=== PATIENT | female | born 1990 | race Caucasian/White ===

== ENCOUNTER 2016-08-07 16:28 | Emergency (ER) | payer BC ==
[2016-08-07 18:09] VITALS: BP 114/67
--- NOTE | 2016-08-07 18:48 | UC ---
FLU HPI - HPI Summary HPI Summary: 25 year old female with complaints of nausea, vomiting, and diarrhea and low grade fever all night. All symptoms resolved at 8:30 this morning but has been worried that she has the flu and would like testing. Headache, and body aches resolved with 400mg of ibuprofen and fluids - History of Current Complaint Chief Complaint: UCGeneralIllness Stated Complaint: VOMITING,DIARRHEA Time Seen by Provider: 08/07/16 18:06 Hx Obtained From: Patient Hx Last Menstrual Period: 1 week ago ?: No Onset/Duration: Sudden Onset, Lasting Hours - 12 hours, Resolved Severity Currently: None Severity Initially: Moderate Associated Signs & Symptoms: Positive: Fever, Myalgia, Headache, Vomiting, Diarrhea. Negative: T Max, F/C, Cough, Sore Throat, Nasal Congestion Related Hx: Possible Flu/Infectious Exposure - Risk Factors Influenza Risk Factors: Negative - Allergy/Home Medications Allergies/Adverse Reactions: Allergies Allergy/AdvReac Type Severity Reaction Status Date / Time Sulfa Drugs Allergy Severe Hives Verified 03/29/16 16:41 Morphine Allergy GI Upset Verified 03/30/16 02:32 IV dye Allergy Severe Hives Uncoded 03/29/16 16:41 Home Medications: Home Medications Cetirizine HCl [Zyrtec Allergy] 10 mg PO DAILY 08/07/16 [History Confirmed 08/07] Sertraline HCl [Zoloft] 25 mg PO DAILY 08/07/16 [History Confirmed 08/07/16] PMH/Surg Hx/FS Hx/Imm Hx Previously Healthy: Yes Endocrine History Of: Denies: Diabetes Cardiovascular History Of: Denies: Hypertension, Pacemaker/ICD Respiratory History Of: Reports: Asthma, Bronchitis GI/ History Of: Denies: Renal Disease Psychological History Of: Reports: Anxiety - Surgical History Surgical History: Yes Surgery Procedure, Year, and Place: wisdom teeth; scheduled for next week - Family History Known Family History: Negative: Hypertension, Diabetes - Social History Occupation: Employed Full-time Lives: With Family Alcohol Use: None Substance Use Type: None Smoking Status (MU): Never Smoked Tobacco Have You Smoked in the Last Year: No - Immunization History Most Recent Influenza Vaccination: unk Most Recent Tetanus Shot: 01/23/16 Most Recent Pneumonia Vaccination: never Review of Systems Constitutional: Fever, Chills Skin: Negative Eyes: Negative ENT: Negative Respiratory: Negative Cardiovascular: Negative Gastrointestinal: Vomiting, Diarrhea - have all resolved Genitourinary: Negative Motor: Negative Neurovascular: Negative Musculoskeletal: Myalgia - resolved Neurological: Headache - resolved Psychological: Negative All Other Systems Reviewed And Are Negative: Yes Physical Exam Triage Information Reviewed: Yes Appearance: No Pain Distress, Well-Nourished, Ill-Appearing - mildly Vital Signs: Initial Vital Signs Temp 98.8 F 08/07/16 18:02 Pulse 92 08/07/16 18:02 Resp 16 08/07/16 18:02 BP 114/67 08/07/16 18:02 Pulse Ox 99 08/07/16 18:02 Vital Signs Reviewed: Yes Eyes: Positive: Conjunctiva Clear. Negative: Discharge ENT: Positive: Pharynx normal, TMs normal. Negative: Nasal congestion, Nasal drainage, Tonsillar swelling Neck: Positive: Supple, Nontender, No Lymphadenopathy Respiratory: Positive: Chest non-tender, Lungs clear, Normal breath sounds. Negative: Crackles, Wheezing Cardiovascular: Positive: RRR, No Murmur Abdomen Description: Positive: Nontender, No Organomegaly, Soft. Negative: CVA Tenderness (R), CVA Tenderness (L), Distended, Guarding Musculoskeletal: Positive: Strength Intact, ROM Intact Neurological: Positive: Alert, Muscle Tone Normal Psychological: Positive: Age Appropriate Behavior - pleasant and cooperative Skin: Negative: rashes, breakdown Flu Course/Dx - Course Course Of Treatment: Influenza test - invalid result. Education on stomach bug and flu - Differential Dx/Diagnosis Differential Diagnosis/HQI/PQRI: Influenza, Upper Respiratory Infection Provider Diagnoses: Gastroenteritis Discharge - Discharge Plan Condition: Stable Disposition: HOME Patient Education Materials: Gastroenteritis (ED) Forms: *Work Release
== END 2016-08-07 18:59 | disposition home or self-care (01) ==
LOC: UCCORT 16:28
DX: K52.9 Noninfective gastroenteritis and colitis, unspecified (principal); Z88.5 Allergy status to narcotic agent; Z88.2 Allergy status to sulfonamides
CPT/HCPCS: 99201; G0463

== ENCOUNTER 2017-03-19 20:00 | Emergency (ER) | payer BC ==
[2017-03-19 20:14] VITALS: BP 132/88
[2017-03-19] MEDS ORDERED: Azithromycin TAB* 250 MG PO ONE (20:55)
--- NOTE | 2017-03-19 21:14 | UC ---
Respiratory Complaint HPI - HPI Summary HPI Summary: Patient presents with cough, congestion, and SOB x 4 days. She has a hx of bronchitis which is usually improved with albuterol and z-robert per patient. She states "I think I have bronchitis". Since last Friday pt c/o runny nose, cough, and SOB. Denies fever/chills. Also c/o chest tightness for last couple weeks, pain worse when coughing. Taking ibuprofen prn, last dose this morning. - History of Current Complaint Hx Obtained From: Patient Hx Last Menstrual Period: 03/11/17 ?: No Onset/Duration: Sudden Onset Timing: Constant Severity Initially: Moderate Severity Currently: Moderate Pain Intensity: 4 Pain Scale Used: 0-10 Numeric Character: Cough: Nonproductive Aggravating Factors: Deep Breaths, Recumbent Position Alleviating Factors: Upright Position Associated Signs And Symptoms: Positive: URI, Nasal Congestion - Risk Factors Pulmonary Embolism Risk Factors: Negative Cardiac Risk Factors: Negative Pseudomonas Risk Factors: Negative Tuberculosis Risk Factors: Negative <Yasmeen Melvin - Last Filed: 03/19/17 21:10> <Vonnie Chapa - Last Filed: 03/20/17 20:07> - History of Current Complaint Chief Complaint: UCRespiratory Stated Complaint: CHEST CONGESTION, COUGH Time Seen by Provider: 03/19/17 20:45 - Allergies/Home Medications Allergies/Adverse Reactions: Allergies Allergy/AdvReac Type Severity Reaction Status Date / Time Sulfa Drugs Allergy Severe Hives Verified 03/19/17 20:06 Amoxicillin Allergy Anaphylatic Verified 03/19/17 20:06 Shock Morphine Allergy GI Upset Verified 03/19/17 20:06 IV dye Allergy Severe Hives Uncoded 03/19/17 20:06 PMH/Surg Hx/FS Hx/Imm Hx Previously Healthy: Yes - Surgical History Surgical History: Yes Surgery Procedure, Year, and Place: wisdom teeth; . tubal ligation - Family History Known Family History: Negative: Hypertension, Diabetes - Social History Occupation: Employed Full-time Lives: With Family Alcohol Use: Rare Substance Use Type: None Smoking Status (MU): Never Smoked Tobacco Have You Smoked in the Last Year: No - Immunization History Most Recent Influenza Vaccination: NOT YET 2016 Most Recent Tetanus Shot: 01/23/16 Most Recent Pneumonia Vaccination: never <Yasmeen Melvin - Last Filed: 03/19/17 21:10> Review of Systems Constitutional: Negative Eyes: Negative Respiratory: Shortness Of Breath, Cough Cardiovascular: Negative Gastrointestinal: Negative Motor: Negative Neurovascular: Negative Neurological: Negative Psychological: Negative Is Patient Immunocompromised?: No All Other Systems Reviewed And Are Negative: Yes <Yasmeen Melvin - Last Filed: 03/19/17 21:10> Physical Exam Triage Information Reviewed: Yes Appearance: Well-Appearing, Well-Nourished Vital Signs: Initial Vital Signs Temp 97.8 F 03/19/17 20:07 Pulse 79 03/19/17 20:07 Resp 16 03/19/17 20:07 BP 132/88 03/19/17 20:07 Pulse Ox 99 03/19/17 20:07 Vital Signs Reviewed: Yes Eye Exam: Normal Eyes: Positive: Conjunctiva Clear Neck exam: Normal Neck: Positive: Supple, No Lymphadenopathy Respiratory Exam: Normal Respiratory: Positive: Chest non-tender, Lungs clear Cardiovascular Exam: Normal Cardiovascular: Positive: RRR Musculoskeletal Exam: Normal Musculoskeletal: Positive: Strength Intact Neurological Exam: Normal Neurological: Positive: Alert Psychological: Positive: Normal Response To Family, Age Appropriate Behavior Skin Exam: Normal <Yasmeen Melvin - Last Filed: 03/19/17 21:10> Vital Signs: Initial Vital Signs Temp 97.8 F 03/19/17 20:07 Pulse 79 03/19/17 20:07 Resp 16 03/19/17 20:07 BP 132/88 03/19/17 20:07 Pulse Ox 99 03/19/17 20:07 <Vonnie Chapa - Last Filed: 03/20/17 20:07> Diagnostic Evaluation - Laboratory O2 Sat by Pulse Oximetry: 99 <NgoziYasmeen - Last Filed: 03/19/17 21:10> Respiratory Course/Dx - Course Course Of Treatment: Patient here with cough and congestion. She states she thinks she has bronchitis as she has a history of such. Denies other problems including fevers, sweats and chills. Denies other symptoms. She is given a z- robert and albuterol. She is OK with plan and discharge. Return precautions given. - Differential Dx/Diagnosis Differential Diagnosis/HQI/PQRI: Bronchitis, Lower Resp Infection, Sinusitis Provider Diagnoses: Acute Bronchitis <Yasmeen Melvin - Last Filed: 03/19/17 21:10> Discharge <Yasmeen Melvin - Last Filed: 03/19/17 21:10> <Vonnie Chapa - Last Filed: 03/20/17 20:07> - Discharge Plan Condition: Stable Disposition: HOME Prescriptions: Albuterol HFA INHALER* [Ventolin HFA Inhaler*] 1 puff INH Q4H PRN #1 mdi PRN Reason: Cough Azithromycin TAB* [Zithromax TAB (Z-ROBERT) 250 mg #6 tabs] 250 mg PO DAILY #4 tab Patient Education Materials: Acute Bronchitis (ED) Referrals: Jordan Terrell PROGRAM DIRECTOR/MUSIC DIRECTOR [Primary Care Provider] - Additional Instructions: Humidifier in the home will help. Tylenol for discomfort. Take all medications as directed. Symptoms should resolve in 1-3 weeks. If symptoms become worse, please come back to UC or go to the ED. Honey and lemon hot tea Rest plenty of fluids. Attestation Statement User Type: Provider - I was available for consult. This patient was seen by the [facility]. The patient was not presented to, seen by, or examined by me. -[place] <Vonnie Chapa - Last Filed: 03/20/17 20:07>
== END 2017-03-19 21:03 | disposition home or self-care (01) ==
LOC: UCCORT 20:00
DX: J20.9 Acute bronchitis, unspecified (principal); Z88.2 Allergy status to sulfonamides; Z88.0 Allergy status to penicillin; Z88.5 Allergy status to narcotic agent
CPT/HCPCS: 99212; A9270-GY; G0463

== ENCOUNTER 2017-08-12 13:14 | Emergency (ER) | payer BC ==
--- OUTSIDE RECORDS SUMMARY | 2017-08-12 14:11 | XMS REPORT ---
:1990 External Reference #:[id number] Author Organization [facility] Address [address] [address] Phone [phone] Care Team Providers Name Role Phone Yunior Dove MD Care Team Information Installation And Service Technician Unavailable Lesa Rodriguez MD Primary Care Physician Unavailable Payers Type Date Identification Numbers Payment Provider Subscriber Commercial Effective: Policy Number: BS Facets Bakari Lu 2013 [id number] PayID: [id number] [address] [address] [place] [address] Problems Date Description Provider Status Onset: 04/17/2012 Arthralgia of the lower leg Bette Ordaz M.D. Active Onset: 04/17/2012 Allergy Bette Ordaz M.D. 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 , lives with and 2 dogs No formal exercise 1-2 cups of coffe per day No tobacco Sexually active with condoms for control 1-2 drinks/month Allergies, Adverse Reactions, Alerts Date Description Reaction Status Severity Comments 04/08/2012 Sulfa vomiting, rash, active Moderate to difficulty Severe breathing 12/30/2012 Vicodin upset stomach active 12/30/2012 Codeine upset stomach active 04/13/2013 IV Contrast hives active 09/22/2015 Bee Sting Anaphylaxis active Severe 09/22/2015 Oxycodone active vomitting and hallucinations 08/28/2016 Augmentin Anaphylaxis active Severe 05/14/2017 Amoxicillin hives, SOB active Medications Medication Date Status Form Strength Qnty SIG Indications Ordering Provider Sumatriptan 07/15 Active Tablets 100mg 12tab 1 tab by G43.709 Amanda Succinate s mouth as Cowdery, needed for M.D. migraine, may repeat after 2 hours; maximum 2 tablets in 24 hours, maximum 2 days a week. Epipen 2-Uri 02/15 Active Solution 0.3mg/0.3 1unit use as Jordan Auto-Inject ML s directed(eliot Terrell, AVIATION MANAGER rgic to bees) Zyrtec 01/20 Active Capsules 10mg 90cap 1 by mouth 995.3 Lesa Allergy s every day Magalis Rodriguez Sertraline Active Tablets 25mg 1 by mouth Unknown HCL /0000 every day Azithromycin 08/28 Hx Tablets 250mg 6tabs 2 tabs by J01.90 Jordan mouth every Xander, AVIATION MANAGER - day x1 day, 1 09/01 tab by mouth /2016 every day x 4 days Amoxicillin/C 08/23 Hx Tablets 875-125mg 20tab take one J01.90 Jordan lavulanate s tablet q12 Xander, AVIATION MANAGER Potassium - hours for 10 Plus 07/11 Hx Tablets 27-1mg 30tab take one Verito /2016 s tablet by Varn, N.P. - mouth one 08/23 time daily Medrol (Uri) 05/29 Hx Tablets 4mg 21tab take 6 tabs M89.8x8 Jordan /2014 s day 1, 5 tabs Xander, AVIATION MANAGER - day 2, 4 tabs 08/21 day 3, 3 tabs /2015 day 4, 2 tabs day 5, and 1 tab day 6. Amoxicillin 04/10 Hx Suspension 250mg/5ML 200ml 10ml PO bid J02.9 Jordan /2014 Rec for 10 days Xander, AVIATION MANAGER - 04/20 Lidocaine 04/10 Hx Solution 2% 100ml gargle with J02.9 Jordan Viscous 15ml every 4 Xander, AVIATION MANAGER - hours as 04/15 needed for throat pain. Terazol 7 02/10 Hx Cream 0.4% 45gm Apply 616.10 intravaginall Cotton, - y QHS x 7 M.D. Metrogel-Vagi 02/01 Hx Gel 0.75% 70gm apply 616.10 intravaginall Pachikara, - y every night M.D. 02/10 at bedtime 5 days Diflucan 02/01 Hx Tablets 150mg 1tabs 1 tab 1 dose 616.10 Pachikara, - M.D. 04/10 Vitamin D 10/26 Hx Capsules [id number] 12cap take one Jordan (Ergocalcifer /2014 s capsule once HOLA Terrell ol) - weekly for 12 08/21 weeks. Ferrous 10/26 Hx Tablets 325(65Fe) 30tab take 1 tablet Jordan Sulfate /2014 mg s once daily. HOLA Terrell - 08/21 Escitalopram 06/06 Hx Tablets 10mg 90tab take one Jordan Oxalate s tablet by HOLA Terrell - mouth once 05/29 daily. TGT ALL Day 10/15 Hx Tablets 10mg 30tab Take One 995.3 Bette s Tablet By Leslie Ordaz - Mouth One M.D. 01/20 Time Lovenox 10/04 Hx Solution 40mg/0.4M 14uni sc every day Nohemy L Jennifer Romo M.D., [facility] 06/02 Nasonex 10/04 Hx Suspension 50mcg/Act 1unit 2 sprays to 461.0 Nohemy s each nostril Mckenna, - once daily M.D., FACP 01/20 Amoxicillin 10/04 Hx Capsules 250mg 30cap three times a 461.0 Nohemy /2013 s day by mouth Mckenna, - for 10 days M.D., FACP 10/20 Cleocin-T 07/14 Hx Gel 1% 30gm apply 1 706.1 application Orlin, - topically to M.D. 07/28 affected area 2 times per day for acne as needed 04/13 Hx Tablets 27-1mg 90tab take 1 tablet Jordan /2012 s daily Xander AVIATION MANAGER - 12/21 Proventil HFA 02/09 Hx Aerosol 108(90Bas 1unit 2 puffs qid e) s prn Varn, N.P. - mcg/Act 08/23 Prednisone 02/09 Hx Tablets 10mg 40tab 4 tablets po 493.90 Verito /2013 s for 4 days 3 Varn, N.P. - tablets po 02/25 for 4 days tablets po for 4 days 1 tablet po for 4 days Pulmicort 02/09 Hx Aerosol 180mcg/Ac 1unit 2 puffs twice 493.90 Verito t s daily Varn, N.P. - 03/11 Zithromax 02/09 Hx Tablets 250mg 1Pack as per directions Varn, N.P. - 02/16 Clindamycin/B 07/20 Hx Gel 1.2-5% 45gm apply 1 706.1 Bette enz application Roland Ordaz - topically to M.D. 03/12 affected area /2012 daily after washing inthe evening for acne Proventil HFA Hx Aerosol 108(90Bas 1unit 2 puffs qid Unknown /0000 e) mcg/ac s prn - 02/09 Advil 00 Hx Capsules 600mg 100ca prn Unknown /0000 ps - 10/04 Benadryl 00 Hx Capsules 50mg 60cap 2- 4 tabs for Unknown Allergy /0000 s allergies prn - 01/20 Zyrtec 00 Hx Capsules 10mg 30cap 1 po qd 995.3 Lesa Allergy /0000 s Cotton, - M.D. 10/15 Pulmicort 00 Hx Aerosol 180mcg/Ac 3unit 2 puffs twice Unknown Flexhaler /0000 t s daily - 06/02 Tylenol 00/ Hx Tablets 325mg prn Unknown /0000 - 07/27 Lovenox Hx Solution 40mg/0.4M 1 injection Unknown /0000 L subcutaneous - every 24 Immunizations CPT Code Status Date Vaccine Lot # [id number] Given 06/12/2014 Fluzone Vaccine Vital Signs Date Vital Result Comment 07/15/2017 Height 61 inches 5'1" Weight 158.00 lb Heart Rate 91 /min BP Systolic Sitting 112 mmHg BP Diastolic Sitting 68 mmHg Respiratory Rate 16 /min Pain Level 0 O2 % BldC Oximetry 98 % Ra BMI (Body Mass Index) 29.9 kg/m2 05/14/2017 Weight 156.38 lb Heart Rate 69 /min BP Systolic Sitting 130 mmHg BP Diastolic Sitting 82 mmHg Body Temperature 98.0 F O2 % BldC Oximetry 98 % 12/10/2016 Height 61 inches 5'1" Weight 160.00 lb Heart Rate 66 /min BP Systolic Sitting 116 mmHg BP Diastolic Sitting 60 mmHg Respiratory Rate 16 /min O2 % BldC Oximetry 98 % BMI (Body Mass Index) 30.2 kg/m2 08/28/2016 Height 61 inches 5'1" Weight 169.00 lb Heart Rate 74 /min BP Systolic 110 mmHg BP Diastolic 70 mmHg Body Temperature 97.0 F O2 % BldC Oximetry 98 % BMI (Body Mass Index) 31.9 kg/m2 08/23/2016 Height 61 inches 5'1" Weight 170.00 lb Heart Rate 80 /min BP Systolic 110 mmHg BP Diastolic 70 mmHg Body Temperature 98.7 F O2 % BldC Oximetry 98 % BMI (Body Mass Index) 32.1 kg/m2 02/05/2016 Height 61 inches 5'1" Weight 187.00 lb Heart Rate 72 /min BP Systolic Sitting 120 mmHg BP Diastolic Sitting 78 mmHg Respiratory Rate 14 /min BMI (Body Mass Index) 35.3 kg/m2 09/22/2015 Height 61 inches 5'1" Weight 162.00 lb Heart Rate 80 /min BP Systolic Sitting 116 mmHg BP Diastolic Sitting 62 mmHg Respiratory Rate 16 /min BMI (Body Mass Index) 30.6 kg/m2 05/29/2015 Height 61 inches 5'1" Weight 162.00 lb Heart Rate 68 /min BP Systolic Sitting 128 mmHg BP Diastolic Sitting 64 mmHg Body Temperature 98.0 F Pain Level 6 L chest pain O2 % BldC Oximetry 99 % BMI (Body Mass Index) 30.6 kg/m2 04/10/2015 Height 61 inches 5'1" Weight 167.00 lb Heart Rate 77 /min BP Systolic Sitting 112 mmHg BP Diastolic Sitting 64 mmHg Respiratory Rate 14 /min Body Temperature 97.1 F Pain Level 8 O2 % BldC Oximetry 98 % BMI (Body Mass Index) 31.6 kg/m2 02/01/2015 Height 61 inches 5'1" Weight 172.00 lb Heart Rate 78 /min BP Systolic Sitting 118 mmHg BP Diastolic Sitting 78 mmHg Body Temperature 97.8 F O2 % BldC Oximetry 98 % BMI (Body Mass Index) 32.5 kg/m2 01/02/2015 Weight 169.25 lb Heart Rate 66 /min BP Systolic Sitting 121 mmHg BP Diastolic Sitting 82 mmHg 10/25/2014 Weight 169.00 lb Heart Rate 67 /min BP Systolic Sitting 136 mmHg BP Diastolic Sitting 90 mmHg Body Temperature 97.4 F 09/16/2014 Weight 171.00 lb Heart Rate 90 /min BP Systolic Sitting 122 mmHg BP Diastolic Sitting 80 mmHg Body Temperature 98.7 F O2 % BldC Oximetry 96 % 07/27/2014 Weight 173.00 lb Heart Rate 71 /min BP Systolic Sitting 129 mmHg BP Diastolic Sitting 86 mmHg Body Temperature 97.0 F O2 % BldC Oximetry 99 % 06/17/2014 Height 61 inches 5'1" Weight 171.50 lb Heart Rate 71 /min BP Systolic Sitting 106 mmHg BP Diastolic Sitting 64 mmHg Body Temperature 98.4 F O2 % BldC Oximetry 99 % BMI (Body Mass Index) 32.4 kg/m2 06/03/2014 Height 61 inches 5'1" Weight 177.25 lb Heart Rate 44 /min BP Systolic Sitting 102 mmHg BP Diastolic Sitting 76 mmHg Body Temperature 97.7 F O2 % BldC Oximetry 97 % BMI (Body Mass Index) 33.5 kg/m2 01/20/2014 Weight 168.00 lb Heart Rate 66 /min BP Systolic Sitting 140 mmHg Recheck 120/78 BP Diastolic Sitting 72 mmHg Recheck 120/78 Body Temperature 97.6 F 10/04/2013 Weight 154.50 lb Heart Rate 76 /min BP Systolic 126 mmHg BP Diastolic 84 mmHg Respiratory Rate 16 /min Body Temperature 98.6 F 07/28/2013 Weight 156.50 lb Heart Rate 78 /min BP Systolic Sitting 118 mmHg BP Diastolic Sitting 68 mmHg Body Temperature 99.1 F 07/14/2013 Weight 158.75 lb Heart Rate 80 /min BP Systolic 122 mmHg BP Diastolic 68 mmHg 04/13/2013 Weight 156.50 lb Heart Rate 64 /min BP Systolic 120 mmHg BP Diastolic 62 mmHg 03/12/2013 Weight 155.75 lb Heart Rate 68 /min BP Systolic Sitting 110 mmHg BP Diastolic Sitting 68 mmHg 02/16/2013 Weight 153.25 lb Heart Rate 62 /min BP Systolic Sitting 100 mmHg BP Diastolic Sitting 70 mmHg O2 % BldC Oximetry 98 % 02/09/2013 Weight 153.00 lb Heart Rate 62 /min BP Systolic Sitting 118 mmHg BP Diastolic Sitting 64 mmHg Body Temperature 97.8 F 01/20/2013 Weight 155.25 lb Heart Rate 60 /min BP Systolic Sitting 98 mmHg BP Diastolic Sitting 62 mmHg 12/30/2012 Weight 157.00 lb Heart Rate 60 /min BP Systolic 118 mmHg BP Diastolic 74 mmHg Body Temperature 99.5 F 07/20/2012 Height 60.5 inches 5'0.50" Weight 157.00 lb Heart Rate 66 /min BP Systolic Sitting 122 mmHg BP Diastolic Sitting 74 mmHg BMI (Body Mass Index) 30.2 kg/m2 04/17/2012 Height 60.5 inches 5'0.50" Weight 162.00 lb Heart Rate 70 /min BP Systolic Sitting 116 mmHg BP Diastolic Sitting 70 mmHg BMI (Body Mass Index) 31.1 kg/m2 04/08/2012 Height 60.5 inches 5'0.50" Weight 156.00 lb Heart Rate 68 /min BP Systolic Sitting 124 mmHg BP Diastolic Sitting 78 mmHg BMI (Body Mass Index) 30.0 kg/m2 Results Test Date Test Result H/L Range Note Laboratory test 05/24/2016 D Dimer Quantitative < 200 ng/mL Less Than 230 1 finding CBC No Diff 03/04/2016 White Blood Count 9.4 10^3/uL 3.5-10.8 Red Blood Count 4.67 10^6/uL 4.0-5.4 Hemoglobin 13.9 g/dL 12.0-16.0 Hematocrit 40 % 35-47 Mean Corpuscular Volume 86 fL 80-97 Mean Corpuscular Hemoglobin 30 pg 27-31 Mean Corpuscular HGB Conc 35 g/dL 31-36 Red Cell Distribution Width 13 % 10.5-15 Platelet Count 296 10^3/uL 150-450 Mean Platelet Volume 8 um3 7.4-10.4 Iron & Iron Binding Capacity 03/04/2016 Iron 103 g/dL 50-212 Unsaturated Iron Binding 432 g/dL Total Iron Binding Capacity 535 g/dL High 250-450 % Iron Saturation 19 % 15-55 Urinalysis Profile 02/29/2016 Urine Color Yellow Urine Appearance Clear Urine Specific R[place]on 1.004 Low 1.010-1.030 Urine pH 7.0 5-9 Urine Urobilinogen Negative Negative Urine Ketones Negative Negative Urine Protein Negative Negative Urine Leukocytes Trace Negative Urine Blood 3+ Negative Urine Nitrite Negative Negative Urine Bilirubin Negative Negative Urine Glucose Negative Negative Urine White Blood Cell Trace(0-5/hpf) Absent Urine Red Blood Cell 3+(>10/hpf) Absent Urine Bacteria 1+ Absent Urine Squamous Epithelial Cell Present Absent Urine Culture And 02/29/2016 Urine Culture SEE RESULT BELOW 2 Sensitivities CBC Auto Diff 04/11/2015 White Blood Count 5.4 10^3/uL 4.8-10.8 Red Blood Count 4.49 10^6/uL 4.0-5.4 Hemoglobin 13.3 g/dL 12.0-16.0 Hematocrit 39 % 35-47 Mean Corpuscular Volume 87 fL 80-97 Mean Corpuscular Hemoglobin 30 pg 27-31 Mean Corpuscular HGB Conc 34 g/dL 31-36 Red Cell Distribution Width 12 % 10.5-15 Platelet Count 319 10^3/uL 150-450 Mean Platelet Volume 8 um3 7.4-10.4 Abs Neutrophils 2.4 10^3/uL 1.5-7.7 Abs Lymphocytes 2.3 10^3/uL 1.0-4.8 Abs Monocytes 0.5 10^3/uL 0-0.8 Abs Eosinophils 0.1 10^3/uL 0-0.6 Abs Basophils 0 10^3/uL 0-0.2 Abs Nucleated RBC 0 10^3/uL Granulocyte % 45.4 % 38-83 Lymphocyte % 42.1 % 25-47 Monocyte % 10.1 % High 1-9 Eosinophil % 1.5 % 0-6 Basophil % 0.9 % 0-2 Nucleated Red Blood Cells % 0.1 Laboratory test finding 04/11/2015 Vitamin D Total 25(Oh) 38.5 ng/mL 30- 50 Lyme Disease Serology Negative Negative 3 Laboratory test 04/10/2015 Culture Throat SEE RESULT BELOW 4 finding Laboratory test 04/10/2015 Rapid Group A Strep negative finding GC/Chlamydia 02/01/2015 Chlamydia trachomatis Negative Negative Amplified Rna Rna Neisseria gonorrhoeae (GC) Rna Negative Negative 5 Laboratory test finding 02/01/2015 Culture Genital & SEE RESULT BELOW 6 Sensitivity Ua Routine 02/01/2015 Ua Specific Ripon 1.010 Ua PH 5.0 Ua Color yellow Ua Appera clear Ua WBC trace Ua Protein neg Ua Glucose neg Ua Ketones neg Ua Bilirubin small Ua Urobilinogen norn Ua Nitrite neg Ua Occult Blood neg Laboratory test finding 01/25/2015 Ferritin 49.2 ng/mL 11-307 Vitamin D Total 25(Oh) 42.4 ng/mL 30-50 Laboratory test finding 10/26/2014 C Reactive Protein 1.26 mg/L < 5.00 7 Erythrocyte Sed Rate 12 mm/Hr 0-14 Ferritin 41.0 ng/mL 11-307 Comp Metabolic Panel 10/26/2014 Sodium 137 mmol/L 133-145 Potassium 4.0 mmol/L 3.5-5.0 Chloride 103 mmol/L 101-111 Co2 Carbon Dioxide 29 mmol/L 22-32 Anion Gap 5 mmol/L 2-11 Glucose 74 mg/dL 70-100 Blood Urea Nitrogen 11 mg/dL 6-24 Creatinine 0.72 mg/dL 0.51-0.95 BUN/Creatinine Ratio 15.3 8-20 Calcium 9.7 mg/dL 8.6-10.3 Total Protein 7.3 g/dL 6.4-8.9 Albumin 4.6 g/dL 3.2-5.2 Globulin 2.7 g/dL 2-4 Albumin/Globulin Ratio 1.7 1-3 Total Bilirubin 0.50 mg/dL 0.2-1.0 Alkaline Phosphatase 67 U/L 34-104 Alt 29 U/L 7-52 Ast 19 U/L 13-39 Egfr Non- 97.9 >60 Egfr 125.9 >60 8 Laboratory test finding 10/26/2014 Vitamin D Total 25(Oh) 20.4 ng/mL Low 30-50 Rheumatoid Factor <15 IU/mL <15 9 Marlene (Anti-Nuclear AB) Screen Negative Negative Cyclic Citrullinated Pept IgG <15.6 U 10 Laboratory test finding 10/25/2014 Test Urine negative Laboratory test finding 07/27/2014 Rapid Influenza A B Antigen (SEE NOTE) 11 Type & Screen 03/23/2014 Patient Blood Type B Positive Antibody Screen NEGATIVE CBC Auto Diff 03/23/2014 White Blood Count 8.5 10^3/uL 4.8-10.8 Red Blood Count 4.56 10^6/uL 4.0-5.4 Hemoglobin 14.1 g/dL 12.0-16.0 Hematocrit 40 % 35-47 Mean Corpuscular Volume 88 fL 80-97 Mean Corpuscular Hemoglobin 31 pg 27-31 Mean Corpuscular HGB Conc 35 g/dL 31-36 Red Cell Distribution Width 13 % 10.5-15 Platelet Count 275 10^3/uL 150-450 Mean Platelet Volume 9 um3 7.4-10.4 Abs Neutrophils 5.4 10^3/uL 1.5-7.7 Abs Lymphocytes 2.4 10^3/uL 1.0-4.8 Abs Monocytes 0.6 10^3/uL 0-0.8 Abs Eosinophils 0.1 10^3/uL 0-0.6 Abs Basophils 0.1 10^3/uL 0-0.2 Abs Nucleated RBC 0.01 10^3/uL Granulocyte % 63.6 % 38-83 Lymphocyte % 28.0 % 25-47 Monocyte % 6.8 % 1-9 Eosinophil % 0.7 % 0-6 Basophil % 0.9 % 0-2 Nucleated Red Blood Cells % 0.1 Throat-Beta Strept 10/02/2013 Throat Beta Strep (SEE NOTE) 12 Culture Laboratory test finding 05/17/2013 Anti Thrombin III 100 % 80 - 130 13 Activity Lupus Anticoagulant AB 05/17/2013 Prothrombin Time(Lac) 10.2 sec 14 Lac Inr 0.9 Lac Aptt 31 sec 26 - 36 Lac DRVVT Screen Ratio 1.0 ratio 0.0 - 1.1 Lupus Anticoagulant Interpreta See Comment 15 Factor 5 Leiden Mutation 05/17/2013 Factor V Leiden Mutation Negative Negative Factor V Leiden Interpretation See Comment 16 Factor V Leiden Reviewed By See Comment 17 Cardiolipin Igg,Igm,Iga AB 05/17/2013 Cardiolipin IgG <4.0 GPL 18 Cardiolipin IgM <4.0 MPL 19 Cardiolipin IgA <4.0 APL 20 Laboratory test finding 05/17/2013 Protein C Activity 125 % 70 - 150 21 Protein C Antigen 99 % 70-150 22 Protein S Activity 79 % 50 - 160 23 Protein S Antigen 76 % 50 - 160 24 Factor II (Prothrombin) 05/17/2013 Prothrombin 71120 Negative Negative Genoty Mutation Prothrombin [id number] Interp See Comment 25 Prothrombin Mutation Review By See Comment 26 Laboratory test finding 03/24/2013 Beta HCG Quantitative < 2.1 MIU/ML 0.0-5.0 27 Urine Culture And 03/14/2013 Urine Culture (SEE NOTE) 28 Sensitivities Urine Microscopic 03/14/2013 Urine WBC None Seen None Seen Urine RBC 2+ (>3-10 /hpf) None Seen Urine Epithelial Cells 2+ Squamous /hpf None Seen Bacteria Urine 2+ None Seen Urinalysis 03/14/2013 Urine Color Yellow Urine Appearance Clear Urine Specific Ripon 1.022 1.010-1.030 Urine Esterase Negative Negative Urine Nitrate Negative Negative Urine Urobilinogen Negative E.U./dL Negative Urine Protein Negative mg/dL Negative Urine pH 6.5 5-9 Urine Blood 1+ Negative Urine Ketones Negative mg/dL Negative Urine Bilirubin Negative Negative Urine Glucose Negative mg/dL Negative Laboratory test finding 03/14/2013 Beta HCG Quantitative 53.0 MIU/ML High 0.0-5.0 29 Comp Metabolic Panel 03/14/2013 Sodium 135 mmol/L 133-145 Potassium 3.6 mmol/L 3.5-5.0 Chloride 104 mmol/L 101-111 Co2 Carbon Dioxide 26.0 mmol/L 22-32 Anion Gap 5.0 mmol/L 2-11 Glucose 85 mg/dL 70-100 Blood Urea Nitrogen 11 mg/dL 6-24 Creatinine 0.60 mg/dL 0.50-1.40 BUN/Creatinine Ratio 18.3 8-20 Calcium 9.1 mg/dL 8.1-9.9 Total Protein 7.0 g/dL 6.2-8.1 Albumin 4.1 g/dL 3.6-5.4 Globulin 2.9 g/dL 2-4 Albumin/Globulin Ratio 1.4 1-3 Total Bilirubin 0.7 mg/dL 0.4-1.5 Alkaline Phosphatase 57 U/L 30-110 Alt 19 U/L 14-54 Ast 25 U/L 12-42 Egfr Non- 122.8 >60 Egfr 158.0 >60 30 Abo/RH Type 03/14/2013 Patient Blood Type B Positive Laboratory test finding 03/14/2013 Activated Partial 31.9 seconds 22.18- 37.18 31 Thrombo Time Inr/Protime 03/14/2013 Inr 0.93 0.87-0.97 Affirm Vaginal Dna 03/14/2013 Affirm Vaginal Dna (SEE NOTE) 32 Probe Probe GC/Chlamydia Amplified 03/14/2013 GC/Chlamydia Rna (SEE NOTE) 33 Rna CBC Auto Diff 03/14/2013 White Blood Count 7.6 10^3/uL 4.8-10.8 Red Blood Count 4.61 10^6/uL 4.0-5.4 Hemoglobin 14.2 g/dL 12.0-16.0 Hematocrit 40 % 35-47 Mean Corpuscular Volume 87 fL 80-97 Mean Corpuscular Hemoglobin 31 pg 27-31 Mean Corpuscular HGB Conc 36 g/dL 31-36 Red Cell Distribution Width 13 % 10.5-15 Platelet Count 357 10^3/uL 150-450 Mean Platelet Volume 7 um3 Low 7.4-10.4 Abs Neutrophils 5.2 10^3/uL 1.5-7.7 Abs Lymphocytes 1.6 10^3/uL 1.0-4.8 Abs Monocytes 0.6 10^3/uL 0-0.8 Abs Eosinophils 0.1 10^3/uL 0-0.6 Abs Basophils 0 10^3/uL 0-0.2 Abs Nucleated RBC 0 10^3/uL Granulocyte % 68.9 % 38-83 Lymphocyte % 20.8 % Low 25-47 Monocyte % 8.4 % 1-9 Eosinophil % 1.3 % 0-6 Basophil % 0.6 % 0-2 Nucleated Red Blood Cells % 0 Laboratory test finding 03/12/2013 Beta HCG Quantitative 40.0 MIU/ML High 0.0-5.0 34 Laboratory test finding 02/16/2013 Rheumatoid Factor <15 IU/mL <15 35 Marlene (Anti-Nuclear AB) Screen Negative Negative 36 Cyclic Citrullinated Pept IgG <15.6 U 37 Vitamin D 1,25 And 02/16/2013 Vitamin D 1,25-Dihydroxy 86 pg/mL 18-78 38 Vitamin D,2 Vitamin D, 25 Hydroxy 02/16/2013 25-Hydroxy Vitamin D2 <4.0 ng/mL 25-Hydroxy Vitamin D3 37 ng/mL 25-Hydroxy Vitamin D Total 37 ng/mL 39 Laboratory test finding 02/09/2013 Lyme Disease Serology Negative Negative 40 Erythrocyte Sed Rate 38 mm/Hr High 0-14 C Reactive Protein 0.7 mg/dL High Less than 0.5 Ua Routine 12/30/2012 Ua Specific Ripon 1.005 Ua PH 7.5 Ua Color yellow Ua Appera clear Ua WBC trace Ua Protein trace Ua Glucose neg Ua Ketones neg Ua Bilirubin neg Ua Urobilinogen neg Ua Nitrite neg Ua Occult Blood neg Laboratory test finding 12/30/2012 Test Urine neg Laboratory test finding 12/30/2012 TSH (Thyroid Stimulating 1.07 miu/mL 0.34-5.60 Horm) Laboratory test finding 04/08/2012 Creatine Kinase 162 U/L 0-200 C Reactive Protein 0.6 mg/dL High Less Than 0.5 Laboratory test 04/08/2012 D Dimer Quantitative < 200 NG/ML Less Than 230 41 finding 1 Please note: The following may produce a false positive D Dimer test: - Rheumatoid factor greater than 60 IU/ml - Plasma hemoglobin greater than 0.05 gm/dl - Bilirubin greater than 50 mg/dl - Lipids greater than 1000 mg/dl - FDP greater than 20 ug/ml 2 SEE RESULT BELOW Name: ALYBAKARI : [address]: Jasson Mar MD Acct: [id number] Unit: [id number] AGE: 25 Location: [facility] Re02/29/16 SEX: F Status: REG REF SPEC: [id number] EMILY: 02/29/16-11[address] [facility] [address]: Jasson Mar MD REQ: [id number] RECD: 09/08/16-1256 STATUS: COMP OTHR DR: Lesa Rodriguez MD _ SOURCE: URINE [facility]: ORDERED: Urine Culture Procedure Result Reported Site Urine Culture Final 03/01/16- 1207 ML No Growth (<1,000 CFU/mL) * ML - MAIN LAB ([facility]) . END OF REPORT * ML=Testing performed at Main Lab DEPARTMENT OF PATHOLOGY, [address] [place] [address] Sukhdev Young M.D. Director [facility] # [id number] 3 Serologic response to B. burgdorferi infection is not detected, but cannot rule out early infection during which low or undetectable antibody levels to B. burgdorferi may be present. If clinically indicated, a new serum specimen should be submitted in 7-14 days. Test Performed by: [place] [address] A Operator: Gordon Grewal II, M.D., Ph.D. 4 SEE RESULT BELOW Name: BAKARI LU : [address]: Jordan Terrell NP Acct: [id number] Unit: [id number] AGE: 24 Location: [facility] Re04/10/15 SEX: F Status: REG REF SPEC: [id number] EMILY: 04/10/[address]: Jordan Terrell NP REQ: [id number] RECD: 04/10/15 STATUS: COMP _ SOURCE: THROAT SPDESC: ORDERED: Throat Culture Procedure Result Verified Site Throat Culture Final 04/12/15- 0825 ML Organism 1 NORMAL YENY Quantity 3+ Throat cultures are clinically indicated to detect the presence of group A strep, arcanobacterium and yeast. In certain cases, predominating organisms will be reported. * ML - MAIN LAB ([facility]) . END OF REPORT * ML=Testing performed at Main Lab DEPARTMENT OF PATHOLOGY, [address] [place] [address] Sukhdev Young M.D. Director [facility] # [id number] 5 Female urine specimens have been self-validated by [facility] and have been granted conditional assay approval by [facility]. 6 SEE RESULT BELOW Name: BAKARI LU : [address]: Fuad Bernal MD Acct: [id number] Unit: [id number] AGE: 24 Location: [facility] Re02/01/15 SEX: F Status: REG REF SPEC: [id number] EMILY: 02/01/15-[address] [facility] [address]: Fuad Bernal MD REQ: [id number] RECD: 02/01/15 STATUS: COMP _ SOURCE: CERVIX SPDESC: ORDERED: Genital Culture Procedure Result Verified Site Genital Culture Final 02/03/15- 02 ML Organism 1 NORMAL YENY Quantity 2+ * ML - MAIN LAB ([facility]) . END OF REPORT * ML=Testing performed at Main Lab DEPARTMENT OF PATHOLOGY, [address] [place] [address] Sukhdev Young M.D. Director [facility] # [id number] 7 Acute inflammation: >10.00 8 Because ethnic data is not always readily available, this report includes an eGFR for both -Americans and non- Americans. The National Kidney Disease Education Program (NKDEP) does not endorse the use of the MDRD equation for patients that are not between the ages of 18 and 70, are , have extremes of body size, muscle mass, or nutritional status, or are non- or non-. According to the National Kidney Foundation, irrespective of diagnosis, the stage of the disease is based on the level of kidney function: Stage Description GFR(mL/min/1.73 m(2)) 1 Kidney damage with normal or decreased GFR 90 2 Kidney damage with mild decrease in GFR 60-89 3 Moderate decrease in GFR 30-59 4 Severe decrease in GFR 15-29 5 Kidney failure <15 (or dialysis) 9 Test Performed by: [place] [address] A Operator: Gordon Grewal II, M.D., Ph.D. 10 REFERENCE VALUE <20.0 (Negative) Test Performed by: [place] [address] A Operator: Gordon Grewal II, M.D., Ph.D. 11 RUN DATE: 07/27/14 Maria [facility] LAB LIVE PAGE 1 RUN TIME: [address] [place] [address] Specimen Inquiry Name: BAKARI LU : [address]: Jordan Terrell NP Acct: [id number] Unit: [id number] AGE: 23 Location: [facility] Re07/27/14 SEX: F Status: REG REF SPEC: [id number] EMILY: 07/27/14-[address]: Jordan Terrell NP REQ: [id number] RECD: 07/27/14 STATUS: COMP _ SOURCE: [facility]: ORDERED: Rapid Flu A B QUERIES: Provider Requisition # [id number] Procedure Result Verified Site Rapid Influenza A B Antigen Final 07/27/141940 ML Organism 1 Negative Influenza A B Antigen testing by enzyme immunoassay. Cell culture testing can be performed to confirm negative test results and to assist in detecting other viruses that can produce similar clinical symptoms. Please notify Microbiology Lab if further testing is desired. END OF REPORT * ML=Testing performed at Main Lab DEPARTMENT OF PATHOLOGY, [address] [place] [address] Sukhdev Young M.D. Director TERESA # [id number] RUN DATE: 10/04/13 [facility] LAB LIVE PAGE 1 RUN TIME: [address] [place] [address] Specimen Inquiry Name: BAKARI LU : [address]: Mary Beth Alfred MD Acct: [id number] Unit: [id number] AGE: 23 Location: [facility] Re10/02/13 SEX: F Status: DEP ER SPEC: [id number] EMILY: 10/02/13 [facility] DR: Mary Beth Alfred MD REQ: [id number] RECD: 10/02/13 STATUS: JADEN STORY DR: Bette Dove MD _ SOURCE: THROAT SPDESC: ORDERED: Throat Beta Str Procedure Result Verified Site Throat Beta Strep Culture Final 10/04/13- 14 ML Negative For Group A Beta Streptococcus END OF REPORT * ML=Testing performed at Main Lab DEPARTMENT OF PATHOLOGY, [address] [place] [address] Sukhdev Young M.D. Director [facility] Permit #[id number] 13 Test Performed by: [place] [address] A Operator: Johnson Montgomery III, M.D. 14 -- REFERENCE VALUE -- 10.3 - 12.8 15 No evidence of a lupus-like anticoagulant based on results of Prothrombin Time (PT), Activated Partial Thromboplastin Time (APTT), and Dilute Russells Viper Venom Time (DRVVT). Interpretation not reviewed by physician. Test Performed by: [address] [address] A Operator: Johnson Montgomery III, M.D. 16 This individual DOES NOT have the factor V Leiden (R506Q) mutation. Although the factor V Leiden mutation is absent, the individual may have other genetic and environmental risk factors for thrombosis. If clinically indicated, suggest Coagulation Consultation 91343 (Thrombophilia Profile) to complete the evaluation for an inherited or acquired thrombosing disorder (i.e., thrombophilia). This test is a direct mutation analysis using PCR amplification, signal generation and release by cleavage of sequence specific alleles ([employer], [employer], [place], [place]). 17 RESULT: Evans Lacy M.D., Ph.D. Test Performed by: [place] [address] A Operator: Johnson Montgomery III, M.D. 18 -- REFERENCE VALUE -- <10.0 (Negative) 19 -- REFERENCE VALUE -- <10.0 (Negative) 20 -- REFERENCE VALUE -- <10.0 (Negative) Test Performed by: [place] [address] A Operator: Johnson Montgomery III, M.D. 21 Test Performed by: [place] [address] A Operator: Johnson Montgomery III, M.D. 22 Test Performed by: [place] [address] A Operator: Johnson Montgomery III, M.D. 23 Heparin levels greater than 1 U/ml, inhibitors of the APTT test system (especially lupus anticoagulant), or inhibitors of bovine factor V (such antibodies that may arise in patients treated with certain bovine topical thrombin preparations) may produce a falsely normal Protein S Activity result. Suggest clinical correlation and if indicated consider repeat assay of Protein S Activity and Antigen in the absence of anticoagulation therapy. Test Performed by: [place] [address] A Operator: Johnson Montgomery III, M.D. 24 Test Performed by: [place] [address] A Operator: Johnson Montgomery III, M.D. 25 This individual DOES NOT have the Prothrombin [id number] mutation. Although the Prothrombin [id number] mutation is absent, the individual may have other genetic and environmental risk factors for thrombosis. If clinically indicated, suggest Coagulation Consultation 46256 (Thrombophilia Profile) to complete the evaluation for an inherited or acquired thrombosing disorder (i.e., thrombophilia). Consider genetic consultation and counseling of potentially affected family members regarding laboratory testing. This test is a direct mutation analysis using PCR amplification, signal generation and release by cleavage of sequence specific alleles ([employer], [employer], [place], [place]). 26 RESULT: Evans Lacy M.D., Ph.D. Test Performed by: [address] [address] A Operator: Johnson Montgomery III, M.D. 27 Males: < 5.0 miu/ml Non females < 5.0 miu/ml Approx gestational age approx HCG range 0-1 week < 5.0-50 1-2 weeks 50-500 2-3 weeks 100-5000 3-4 weeks 500-10,000 1-2 months 10,000-200,000 2-3 months 15,000-100,000 Please note: The intended use of this assay is the quantitative determination of HCG in human serum or plasma for the early detection of . These assays should not be used to diagnose any condition unrelated to . If an HCG level is inconsistent with, or unsupported by, clinical evidence, results should be confirmed by an alternate HCG method. 28 RUN DATE: 03/16/13 [facility] LAB LIVE PAGE 1 RUN TIME: [address] [place] [address] Specimen Inquiry Name: BAKARI LU : [address]: Jasson Llanes MD Acct: [id number] Unit: [id number] AGE: 22 Location: ED Re03/14/13 SEX: F Status: DEP ER SPEC: [id number] EMILY: 03/14/[address] [facility] [address]: Jasson Llanes MD REQ: [id number] RECD: 03/14/13 STATUS: COMP OTHR DR: Bette Ordaz MD _ SOURCE: URINE SPDESC: ORDERED: Urine Culture Procedure Result Verified Site Urine Culture Final 03/16/13- 948 ML Organism 1 NORMAL YENY [place] Count 50-75,000 (Many) CFU/ML END OF REPORT * ML=Testing performed at Main Lab DEPARTMENT OF PATHOLOGY, [address] [place] [address] Sukhdev Young M.D. Director [facility] Permit #[id number] 29 Males: < 5.0 miu/ml Non females < 5.0 miu/ml Approx gestational age approx HCG range 0-1 week < 5.0-50 1-2 weeks 50-500 2-3 weeks 100-5000 3-4 weeks 500-10,000 1-2 months 10,000-200,000 2-3 months 15,000-100,000 Please note: The intended use of this assay is the quantitative determination of HCG in human serum or plasma for the early detection of . These assays should not be used to diagnose any condition unrelated to . If an HCG level is inconsistent with, or unsupported by, clinical evidence, results should be confirmed by an alternate HCG method. 30 Because ethnic data is not always readily available, this report includes an eGFR for both -Americans and non- Americans. The National Kidney Disease Education Program (NKDEP) does not endorse the use of the MDRD equation for patients that are not between the ages of 18 and 70, are , have extremes of body size, muscle mass, or nutritional status, or are non- or non-. According to the National Kidney Foundation, irrespective of diagnosis, the stage of the disease is based on the level of kidney function: Stage Description GFR(mL/min/1.73 m(2)) 1 Kidney damage with normal or decreased GFR 90 2 Kidney damage with mild decrease in GFR 60-89 3 Moderate decrease in GFR 30-59 4 Severe decrease in GFR 15-29 5 Kidney failure <15 (or dialysis) 31 Comment: n Comment: d 32 RUN DATE: 03/14/13 [facility] LAB LIVE PAGE 1 RUN TIME: [address] [place] [address] Specimen Inquiry Name: BAKARI LU : [address]: Jasson Llanes MD Acct: [id number] Unit: [id number] AGE: 22 Location: ED Re03/14/13 SEX: F Status: REG ER SPEC: [id number] EMILY: 03/14/13-[address] [facility] [address]: Jasson Llanes MD REQ: [id number] RECD: 03/14/13 STATUS: JADEN STORY DR: Bette Ordaz MD _ SOURCE: VAGINAL SPDESC: ORDERED: Affirm Procedure Result Verified Site Affirm Vaginal DNA Probe Final 03/14/13- 1408 ML Organism 1 Negative Trichomonas Organism 2 Negative Gardnerella Organism 3 Negative Alexandria The presence of G. vaginalis, although suggestive, is not diagnostic for bacterial vaginosis. Results should be interpreted in conjunction with other clinical and laboratory data available. Women with vaginal discharge should be evaluated for risk factors of cervicitis and pelvic inflammatory disease, toxic shock syndrome (S.aureus), and if present, evaluated for organisms not included in this assay such as N. gonorrhoeae, C. trachomatis, Mobiluncus, Mycoplasma and/or Prevotella. Mixed infections may occur. The performance of this test on patient specimens collected during or immediately after antimicrobial therapy is unknown. The presence or absence of Alexandria species, G. vaginalis or T. vaginalis cannot be used as a test for therapeutic success or failure. END OF REPORT * ML=Testing performed at Main Lab DEPARTMENT OF PATHOLOGY, [facility] [employer] [place], [place] [address] Sukhdev Young M.D. Director [facility] Permit #[id number] RUN DATE: 03/16/13 [facility] LAB LIVE PAGE 1 RUN TIME: 1225 [facility] [employer] [place], [place] [address] Specimen Inquiry Name: BAKARI LU : [address]: Jasson Llanes MD Acct: [id number] Unit: [id number] AGE: 22 Location: ED Re03/14/13 SEX: F Status: DEP ER SPEC: [id number] EMILY: 03/14/13-[address] [facility] [address]: Jasson Llanes MD REQ: [id number] RECD: 03/14/13 STATUS: JADEN STORY DR: Bette Ordaz MD _ SOURCE: ENDOCERVIX SPDES: ORDERED: GC/Chlam RNA Procedure Result Verified Site Chlamydia Trachomatis RNA Final 03/16/13- 1219 ML NEGATIVE for Chlamydia trachomatis rRNA GC (N. gonorrhoeae) RNA Final 03/16/13- 1225 ML NEGATIVE for Neisseria gonorrhoeae rRNA A negative result does not preclude the presence of a C. trachomatis or N. gonorrhoeae infection because results are dependent on adequate specimen collection, absence of inhibitors, and sufficient rRNA to be detected. Test results may be affected by improper specimen collection, improper storage, technical error, or specimen mixup. Limitations of the Procedure: The Aptima Combo 2 Assay is not intended for the evaluation of suspected sexual abuse or for other medico-legal indications. For those patients for whom a false positive result may have adverse psychosocial impact, the [facility] recommends retesting by a method using an alternate technology. Therapeutic failure or success cannot be determined with the Aptima Combo 2 Assay since nucleic acid may persist following appropriate antimicrobial therapy. Results from the Aptima Combo 2 Assay should be interpreted in conjunction with other laboratory and clinical data available to the clinican. Performance characteristics for detecting C. trachomatis and CONTINUED ON NEXT PAGE * ML=Testing performed at Main Lab DEPARTMENT OF PATHOLOGY, [facility] [employer] [place] [address] Sukhdev Young M.D. Director [facility] Permit #[id number] RUN DATE: 03/16/13 [facility] LAB LIVE PAGE 2 RUN TIME: 1225 [facility] [employer] [place], [place] [address] Specimen Inquiry Patient: BAKARI LU [id number] (Continued) Specimen: [id number] Collected: 03/14/13-1299 Received: 03/14/13-1311 (Continued) Procedure Result Verified Site GC (N. gonorrhoeae) RNA Final (continued) 03/16/13- 1225 N. gonorrhoeae are derived from high prevalence populations. Positive results in low prevalence populations should be interpreted carefully with the understanding that the likelihood of a false positive may be higher than a true positive. END OF REPORT * ML=Testing performed at Main Lab DEPARTMENT OF PATHOLOGY, [address] [place] [address] Sukhdev Young M.D. Director [facility] Permit #[id number] 34 Males: < 5.0 miu/ml Non females < 5.0 miu/ml Approx gestational age approx HCG range 0-1 week < 5.0-50 1-2 weeks 50-500 2-3 weeks 100-5000 3-4 weeks 500-10,000 1-2 months 10,000-200,000 2-3 months 15,000-100,000 Please note: The intended use of this assay is the quantitative determination of HCG in human serum or plasma for the early detection of . These assays should not be used to diagnose any condition unrelated to . If an HCG level is inconsistent with, or unsupported by, clinical evidence, results should be confirmed by an alternate HCG method. 35 Test Performed by: [address] [address] A Operator: Johnson Montgomery III, M.D. 36 @Sample frozen by [id number] at 2117 on 02/16/13. 37 -- REFERENCE VALUE -- <20.0 (Negative) Test Performed by: [place] [address] A Operator: Johnson Montgomery III, M.D. 38 Test Performed by: [place] [address] A Operator: Johnson Montgomery III, M.D. 39 -- REFERENCE VALUE -- 25-HYDROXY D TOTAL (D2+D3) Optimum levels in the normal population are 25-80 Test Performed by: [place] [address] A Operator: Johnson Montgomery III, M.D. 40 Serologic response to B. burgdorferi infection is not detected, but cannot rule out early infection during which low or undetectable antibody levels to B. burgdorferi may be present. If clinically indicated, a new serum specimen should be submitted in 7-14 days. Test Performed by: [place] [address] A Operator: Johnson Montgomery III, M.D. 41 Please note: The following may produce a false positive D Dimer test: - Rheumatoid factor greater than 60 IU/ml - Plasma hemoglobin greater than 0.05 gm/dl - Bilirubin greater than 50 mg/dl - Lipids greater than 1000 mg/dl - FDP greater than 20 ug/ml Procedures Date CPT Code Description Status 05/29/2015 91939 EKG Tracing & Interpretation Completed 02/09/2013 38927 Inhalation TX For Acute Airway Obstruction Completed W/Nebulizer/Inhaler Encounters Type Date Location Provider CPT E/M Dx Office Visit 05/14/2017 [facility] Maria D Saldaña, [address] J06.9 10:50a - Lesa Blancas Office Visit 12/10/2016 Jeremy Campbell M.D. 17056 G43.709 3:45p [facility] Z86.718 Office Visit 08/28/2016 4:00p [facility] [place] [address] J01.90 [place] Office Visit 08/23/2016 1:00p [facility] [place] [address] J01.90 [place] Office Visit 02/05/2016 2:00p [facility] Amanda Sarabialiane, 107[address] O99.353 Services Of Noah Blancas G43.709 O99.89 Z86.718 Z3A.32 Office Visit 09/22/2015 10:00a [facility] Amanda Campbell, [address] G43.709 [place] Z86.718 Office Visit 05/29/2015 3:40p [facility] [place] [address] R07.9 [place] M89.8x8 R07.82 Office Visit 04/10/2015 4:00p [facility] [place] [address] J02.9 [place] E55.9 M25.50 Office Visit 02/01/2015 1:20p [facility] Fuad Bernal, 37658 599.0 - Levi Blancas 616.10 Office Visit 01/02/2015 2:40p [facility] Verito Wade, N.P. 93294 611.71 - [place] Office Visit 10/25/2014 4:00p [facility] [place] [address] 626.4 - [place] 719.99 729.1 719.49 Office Visit 09/16/2014 4:00p [facility] Nelida Caceres M.D. 97300 461.9 - [place] Office Visit 07/27/2014 3:30p [facility] [place] [address] 300.02 - [place] 465.9 Office Visit 06/17/2014 9:00a [facility] [place] [address] 300.02 [place] 787.02 Office Visit 06/03/2014 4:00p [facility] [place] [address] 300.02 - [place] Office Visit 01/20/2014 2:40p [facility] Lesa Rodriguez, [address]93[address] V01.79 - Levi Blancas Office Visit 10/04/2013 12:00p [facility] Nohemy Andres M.D., 68988 461.0 - [place] FACP Office Visit 07/28/2013 11:20a [facility] Bette Ordaz M.D. 32075 784.0 - [place] Office Visit 07/14/2013 2:40p [facility] Bette Ordaz M.D. 71121 706.2 - [place] 706.1 Office Visit 04/13/2013 3:20p [facility] - Bette Ordaz M.D. 83605 626.4 [place] 293.83 Office Visit 03/12/2013 2:20p [facility] - Bette Ordaz M.D. 14245 626.0 [place] 787.02 Office Visit 02/16/2013 3:00p [facility] Verito Wade, N.P. 71643 493.90 - [place] 719.49 Office Visit 02/09/2013 1:00p [facility] Verito Wade, N.P. 30490 493.90 - [place] 719.49 Office Visit 01/20/2013 4:20p [facility] - Bette Ordaz M.D. 08501 620.2 [place] Office Visit 12/30/2012 3:40p [facility] - Bette Ordaz M.D. 07305 789.07 [place] 787.02 626.0 Office Visit 07/20/2012 4:20p [facility] - Bette Ordaz M.D. 25928 493.90 [place] 786.05 706.1 Office Visit 04/17/2012 3:40p [facility] - Bette Ordaz M.D. 06920 719.46 [place] 995.3 493.90 Office Visit 04/08/2012 3:40p [facility] - Bette Ordaz M.D. 49928 719.47 [place] Plan of Care Future Appointment(s):01/09/2018 2:00 pm - Amanda Campbell M.D. at [facility]/15/2017 - Amanda Campbell M.D.G43.709 Chronic migraine w/o aura, not intractable, w/o stat migrNew Medication:Sumatriptan Succinate 100 mgFollow up:6 monthsRecommendations:Consider taking Magnesium 400 or 500mg a day. Mag Oxide is ok Chelated, or gluconated Magnesium is easier on the stomach For a migraine, take sumatriptan ivanna. You may take it with ibuprofen. Call if your headaches come back daily, and we will consider imaging. You can fly (just don't jump out of the plane) Hydrate with water.Z86.477 Personal history of other venous thrombosis and embolism
[2017-08-12] MEDS ORDERED: Acetaminophen TAB* 325 MG PO ONE (14:48)
[2017-08-12 15:16] VITALS: BP 122/70
--- NOTE | 2017-08-12 15:30 | UC ---
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 Negative: Cough, Chest Pain, Dysuria, Headache, SOB <Alejandrina Peraza - Last Filed: 08/12/17 15:30> <Vonnie Chapa - Last Filed: 08/12/17 17:43> - History of Current Complaint Chief Complaint: UCRespiratory Stated Complaint: CHILLS/ACHY/ST Time Seen by Provider: 08/12/17 15:13 - Allergy/Home Medications Allergies/Adverse Reactions: Allergies Allergy/AdvReac Type Severity Reaction Status Date / Time amoxicillin Allergy Anaphylatic Verified 08/12/17 14:55 Shock morphine Allergy GI Upset Verified 08/12/17 14:55 Sulfa (Sulfonamide Allergy Hives Verified 08/12/17 14:55 Antibiotics) IV dye Allergy Severe Hives Uncoded 08/12/17 14:55 Home Medications: Home Medications Cetirizine* [ZyrTEC 10 MG TAB*] 10 mg PO DAILY 08/12/17 [History Confirmed 08/12] PMH/Surg Hx/FS Hx/Imm Hx - Additional Past Medical History Additional PMH: Intracranial bleed - Surgical History Surgical History: Yes Surgery Procedure, Year, and Place: wisdom teeth; x2. tubal ligation - Family History Known Family History: Negative: Hypertension, Diabetes - Social History Occupation: Employed Full-time Lives: With Family Alcohol Use: Rare Substance Use Type: None Smoking Status (MU): Never Smoked Tobacco Have You Smoked in the Last Year: No - Immunization History Most Recent Influenza Vaccination: NOT YET 2017 Most Recent Tetanus Shot: 01/23/16 Most Recent Pneumonia Vaccination: never Vaccination Up to Date: Yes <Alejandrina Peraza - Last Filed: 08/12/17 15:30> Review of Systems Constitutional: Fever, Chills, Other - bodyaches Skin: Negative Eyes: Negative ENT: Sore Throat Respiratory: Negative Cardiovascular: Negative Gastrointestinal: Negative Genitourinary: Negative Motor: Negative Neurovascular: Negative Musculoskeletal: Negative Neurological: Negative Psychological: Negative Is Patient Immunocompromised?: No All Other Systems Reviewed And Are Negative: Yes <Alejandrina Peraza - Last Filed: 08/12/17 15:30> Physical Exam Triage Information Reviewed: Yes Appearance: Ill-Appearing Vital Signs: Initial Vital Signs Temp 103.8 F 08/12/17 15:08 Pulse 120 08/12/17 15:08 Resp 20 08/12/17 15:08 BP 122/70 08/12/17 15:08 Pulse Ox 100 08/12/17 15:08 Eyes: Positive: Conjunctiva Clear ENT: Positive: Pharyngeal erythema, TMs normal, Uvula midline. Negative: Nasal congestion, Nasal drainage, Tonsillar swelling, Tonsillar exudate, Trismus, Muffled voice, Hoarse voice Neck: Positive: Supple, Tenderness @ - peritonsilar nodes, Enlarged Nodes @ - peritonsilar Cardiovascular: Positive: No Murmur, Pulses Normal, Tachycardia - HR 104 Abdomen Description: Positive: Nontender, No Organomegaly, Soft Bowel Sounds: Positive: Present Musculoskeletal: Positive: No Edema Neurological: Positive: Alert Psychological: Positive: Age Appropriate Behavior Skin Exam: Normal <Alejandrina Peraza - Last Filed: 08/12/17 15:30> Vital Signs: Initial Vital Signs Temp 103.8 F 08/12/17 15:08 Pulse 120 08/12/17 15:08 Resp 08/12/17 15:08 BP 122/70 08/12/17 15:08 Pulse Ox 100 08/12/17 15:08 <Vonnie Chapa - Last Filed: 08/12/17 17:43> Diagnostics - Laboratory ABG Interpretation: rapid strep=+ and flu is negative <Alejandrina Peraza - Last Filed: 08/12/17 15:30> Course/Dx - Course Course Of Treatment: non toxic, raid flu=neg, rapid strep=+. will tx zithromax given allergy hx. - Differential Dx - Multi-Symptom Provider Diagnoses: strep throat <Alejandrina Peraza - Last Filed: 08/12/17 15:30> Discharge <Alejandrina Peraza - Last Filed: 08/12/17 15:30> <Vonnie Chapa - Last Filed: 08/12/17 17:43> - Discharge Plan Condition: Stable Disposition: HOME Prescriptions: Azithromycin TAB* [Zithromax TAB (Z-ROBERT) 250 mg #6 tabs] 2 tab PO .TODAY, THEN 1 DAILY #1 robert Patient Education Materials: Strep Throat (ED) Forms: *Work Release Referrals: Jordan Terrell NP [Primary Care Provider] - 5 Days Attestation Statement User Type: Provider - I was available for consult. This patient was seen by the [facility]. The patient was not presented to, seen by, or examined by me. Mansoor <Vonnie Chapa - Last Filed: 08/12/17 17:43>
== END 2017-08-12 15:40 | disposition home or self-care (01) ==
LOC: UCCORT 13:14
DX: J02.0 Streptococcal pharyngitis (principal)
CPT/HCPCS: 87502; 87651; 99212; A9270-GY; G0463

== ENCOUNTER 2017-11-17 16:02 | Emergency (ER) | payer BC ==
[2017-11-17 16:23] VITALS: BP 137/74
--- NOTE | 2017-11-17 16:31 | UC ---
Skin Complaint HPI - HPI Summary HPI Summary: found a tick on L calf at 4pm. duration of bite it not known. no rash, fever, joint pain. 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 - History of Current Complaint Chief Complaint: UCSkin Time Seen by Provider: 11/17/17 16:25 Stated Complaint: TICK Hx Obtained From: Patient Hx Last Menstrual Period: 11/11/17 Pain Intensity: 0 Aggravating Factor(s): Nothing Alleviating Factor(s): Nothing Associated Signs & Symptoms: Negative: Fever, Rash, Joint Swelling - Allergy/Home Medications Allergies/Adverse Reactions: Allergies Allergy/AdvReac Type Severity Reaction Status Date / Time amoxicillin Allergy Anaphylatic Verified 08/12/17 14:55 Shock morphine Allergy GI Upset Verified 08/12/17 14:55 Sulfa (Sulfonamide Allergy Hives Verified 08/12/17 14:55 Antibiotics) IV dye Allergy Severe Hives Uncoded 08/12/17 14:55 Home Medications: Home Medications Ibuprofen TAB* [Advil TAB*] 400 mg PO Q6H PRN 11/17/17 [History Confirmed ] Review of Systems Constitutional: Negative Skin: Negative Eyes: Negative ENT: Negative Respiratory: Negative Cardiovascular: Negative Gastrointestinal: Negative Genitourinary: Negative Motor: Negative Neurovascular: Negative Musculoskeletal: Negative Neurological: Negative Psychological: Negative Is Patient Immunocompromised?: No All Other Systems Reviewed And Are Negative: Yes PMH/Surg Hx/FS Hx/Imm Hx - Additional Past Medical History Additional PMH: allergies Respiratory History: Asthma Psychological History: Depression - Surgical History Surgical History: Yes Surgery Procedure, Year, and Place: wisdom teeth; x2. tubal ligation - Family History Known Family History: Negative: Hypertension, Diabetes - Social History Occupation: Employed Full-time Lives: With Family Alcohol Use: Rare Substance Use Type: None Smoking Status (MU): Never Smoked Tobacco Have You Smoked in the Last Year: No - Immunization History Most Recent Influenza Vaccination: NOT YET 2017 Most Recent Tetanus Shot: 01/23/16 Most Recent Pneumonia Vaccination: never Vaccination Up to Date: Yes Physical Exam Triage Information Reviewed: Yes Appearance: Well-Appearing Vital Signs: Initial Vital Signs Temp 99.1 F 11/17/17 16:17 Pulse 67 11/17/17 16:17 Resp 16 11/17/17 16:17 BP 137/74 11/17/17 16:17 Pulse Ox 100 11/17/17 16:17 Eyes: Positive: Conjunctiva Clear ENT: Positive: Normal ENT inspection Neck: Positive: Supple, Nontender, No Lymphadenopathy Respiratory: Positive: Lungs clear, Normal breath sounds Cardiovascular: Positive: RRR, No Murmur Abdomen Description: Positive: Nontender, No Organomegaly, Soft Bowel Sounds: Positive: Present Musculoskeletal: Positive: ROM Intact Neurological: Positive: Alert Psychological: Positive: Age Appropriate Behavior Skin Exam: Normal Course/Dx - Course Course Of Treatment: tick bite of unknown duration. no s/s's lyme dz. will tx 200mg doxycycline - Diagnoses Provider Diagnoses: Tick bite L calf Discharge - Sign-Out/Discharge Documenting (check all that apply): Discharge/Admit/Transfer - Discharge Plan Condition: Stable Disposition: HOME Prescriptions: DOXYcycline CAP(*) [DOXYcycline 100MG CAP(*)] 200 mg PO DAILY #2 cap Patient Education Materials: Tick Bite (ED) Referrals: Jordan Terrell DOG HANDLER [Primary Care Provider] - If Needed - Billing Disposition and Condition Condition: STABLE Disposition: HOME
== END 2017-11-17 16:36 | disposition home or self-care (01) ==
LOC: UCCORT 16:02
DX: S80.862A Insect bite (nonvenomous), left lower leg, initial encounter (principal); W57.XXXA Bitten or stung by nonvenomous insect and other nonvenomous arthropods, initial encounter; Y93.9 Activity, unspecified; Y92.9 Unspecified place or not applicable; Z88.5 Allergy status to narcotic agent; Z88.0 Allergy status to penicillin; Z88.2 Allergy status to sulfonamides; Z91.041 Radiographic dye allergy status
CPT/HCPCS: 99212; G0463

== ENCOUNTER 2017-11-19 16:39 | Emergency (ER) | payer BC ==
[2017-11-19 17:01] VITALS: BP 110/60
--- NOTE | 2017-11-19 17:24 | ED ---
Lower Extremity - HPI Summary HPI Summary: 27 yr old with complaint of left calf, thigh pain, and feels like is swollen. Onset over past couple of days. Denies fever, chills. Denies SOB, CP. She received 200mg of doxy for tick bite to left calf a couple days ago, and there was not and is not now a jennifer from the tick bite, and no redness. She also complains of fatigue, and also has feeling of headache as well. no focal neurological deficits. - History of Current Complaint Chief Complaint: UCLowerExtremity Stated Complaint: FOLLOW UP TICK BITE Time Seen by Provider: 11/19/17 16:54 Hx Last Menstrual Period: 11/11/17 has had tubal Pain Intensity: 6 - Allergies/Home Medications Allergies/Adverse Reactions: Allergies Allergy/AdvReac Type Severity Reaction Status Date / Time amoxicillin Allergy Anaphylatic Verified 11/19/17 17:02 Shock morphine Allergy GI Upset Verified 11/19/17 17:02 Sulfa (Sulfonamide Allergy Hives Verified 11/19/17 17:02 Antibiotics) IV dye Allergy Severe Hives Uncoded 11/19/17 17:02 Home Medications: Home Medications Acetaminophen [Acetaminophen Extra Strength] 500 mg PO ONCE 11/19/17 [History Confirmed 11/19/17] PMH/Surg Hx/FS Hx/Imm Hx Endocrine/Hematology History: Denies: Hx Diabetes Cardiovascular History: Denies: Hx Hypertension, Hx Pacemaker/ICD Respiratory History: Reports: Hx Asthma History: Denies: Hx Renal Disease Sensory History: Denies: Hx Hearing Aid Psychiatric History: Reports: Hx Anxiety Denies: Hx Panic Disorder - Surgical History Surgery Procedure, Year, and Place: wisdom teeth; x2. tubal ligation - Immunization History Date of Tetanus Vaccine: Unk Date of Influenza Vaccine: Declines Infectious Disease History: No Infectious Disease History: Denies: History Other Infectious Disease, Traveled Outside the [place] in Last 30 Days - Family History Known Family History: Negative: Hypertension, Diabetes - Social History Alcohol Use: Rare Substance Use Type: Reports: None Hx Tobacco Use: No Smoking Status (MU): Never Smoked Tobacco Have You Smoked in the Last Year: No Review of Systems Positive: Other - left calf and leg pain and swelling Negative: Rash Positive: Headache All Other Systems Reviewed And Are Negative: Yes Physical Exam Triage Information Reviewed: Yes Vital Signs On Initial Exam: Initial Vitals Temp Pulse Resp BP Pulse Ox 98.6 F 59 16 110/60 100 11/19/17 16:56 11/19/17 16:56 11/19/17 16:56 11/19/17 16:56 11/19/17 16:56 Vital Signs Reviewed: Yes Appearance: Positive: Well-Appearing, No Pain Distress Skin: Positive: Warm, Skin Color Reflects Adequate Perfusion Head/Face: Positive: Normal Head/Face Inspection Eyes: Positive: EOMI Neck: Positive: Supple, Nontender, No Lymphadenopathy Respiratory/Lung Sounds: Positive: Clear to Auscultation, Breath Sounds Present Cardiovascular: Positive: RRR. Negative: Murmur Abdomen Description: Negative: Distended Musculoskeletal: Positive: Strength/ROM Intact, Other - good PT and DP pulse left foot.. Negative: Edema Left, Edema Right Neurological: Positive: Sensory/Motor Intact, Alert, Oriented to Person Place, Time, CN Intact II-III Psychiatric: Positive: Normal - Terrance Coma Scale Best Eye Response: 4 - Spontaneous Best Motor Response: 6 - Obeys Commands Best Verbal Response: 5 - Oriented Coma Scale Total: 15 Diagnostics - Vital Signs Vital Signs Temp Pulse Resp BP Pulse Ox 11/19/17 16:56 98.6 F 59 16 110/60 100 - Laboratory Lab Statement: Any lab studies that have been ordered have been reviewed, and results considered in the medical decision making process. Lower Extremity Course/Dx - Course Course Of Treatment: 27 yr old with multiple complaints among them, left leg pain and subjective swelling and she verbalized she has had prior blood clots. She was strongly encouraged to go to the ER upon leaving here, and she verabalized she does not need an ambulance, and that she wants to drive from here to the ER. - Diagnoses Provider Diagnoses: Left leg pain, Headache Discharge - Sign-Out/Discharge Documenting (check all that apply): Discharge/Admit/Transfer - Discharge Plan Condition: Good Disposition: [facility] Patient Education Materials: Leg Pain (ED) Referrals: Lesa Rodriguez MD [Primary Care Provider] - 1 Day Additional Instructions: You should go to the ER immediately upon leaving here for further evaluation of your symptoms and leg discomfort. Do not delay. - Billing Disposition and Condition Condition: GOOD Disposition: EMTALA
== END 2017-11-19 17:24 | disposition short-term general hospital (02) ==
LOC: UCCORT 16:39
DX: M79.662 Pain in left lower leg (principal); R51 Headache; Z88.5 Allergy status to narcotic agent; Z88.0 Allergy status to penicillin; Z88.2 Allergy status to sulfonamides; Z91.041 Radiographic dye allergy status
CPT/HCPCS: 99212; G0463

== ENCOUNTER 2018-01-12 20:31 | Emergency (ER) | payer BC ==
[2018-01-12 20:56] VITALS: BP 124/92
--- NOTE | 2018-01-12 21:04 | UC ---
UC General HPI - HPI Summary HPI Summary: Patient presents complaining of a sore throat and chills onset today. She states that her and her child both tested positive for strep throat her was just seen here and tested positive. She denies any allergy symptoms such as sneezing or runny nose she denies any upper respiratory infection she has no cough short of breath nausea vomiting or diarrhea. - History of Current Complaint Stated Complaint: ST Time Seen by Provider: 01/12/18 20:55 Hx Obtained From: Patient Hx Last Menstrual Period: 01/02/18 Onset/Duration: Gradual Onset Timing: Constant Pain Intensity: 4 - Allergy/Home Medications Allergies/Adverse Reactions: Allergies Allergy/AdvReac Type Severity Reaction Status Date / Time amoxicillin Allergy Anaphylatic Verified 01/12/18 20:57 Shock morphine Allergy GI Upset Verified 01/12/18 20:57 Sulfa (Sulfonamide Allergy Hives Verified 01/12/18 20:57 Antibiotics) IV dye Allergy Severe Hives Uncoded 01/12/18 20:57 PMH/Surg Hx/FS Hx/Imm Hx - Additional Past Medical History Additional PMH: ALLERGIES Psychological History: Anxiety - Surgical History Surgical History: Yes Surgery Procedure, Year, and Place: wisdom teeth; x2. tubal ligation. right venous thromosis, brain 2008 - Family History Known Family History: Positive: None Negative: Hypertension, Diabetes - Social History Occupation: Employed Full-time Lives: With Family Alcohol Use: Rare Substance Use Type: None Smoking Status (MU): Never Smoked Tobacco Have You Smoked in the Last Year: No - Immunization History Most Recent Influenza Vaccination: NOT YET 2017 Most Recent Tetanus Shot: 01/23/16 Most Recent Pneumonia Vaccination: never Vaccination Up to Date: Yes Review of Systems Constitutional: Chills Skin: Negative Eyes: Negative ENT: Sore Throat Respiratory: Negative Cardiovascular: Negative Gastrointestinal: Negative Genitourinary: Negative Motor: Negative Neurovascular: Negative Musculoskeletal: Negative Neurological: Negative Psychological: Negative Is Patient Immunocompromised?: No All Other Systems Reviewed And Are Negative: Yes Physical Exam Triage Information Reviewed: Yes Appearance: Well-Appearing Vital Signs: Initial Vital Signs Temp 98.6 F 01/12/18 20:51 Pulse 63 01/12/18 20:51 Resp 16 01/12/18 20:51 BP 124/92 01/12/18 20:51 Pulse Ox 100 01/12/18 20:51 Vital Signs Reviewed: Yes Eyes: Positive: Conjunctiva Clear ENT: Positive: Pharyngeal erythema, TMs normal, Uvula midline. Negative: Nasal congestion, Nasal drainage, Tonsillar swelling, Tonsillar exudate, Trismus, Muffled voice, Hoarse voice Neck: Positive: Supple, Tenderness @ - . Tonsillar nodes which are also mildly enlarged. Respiratory: Positive: Lungs clear, Normal breath sounds Cardiovascular: Positive: RRR, No Murmur Abdomen Description: Positive: Nontender, No Organomegaly, Soft. Negative: Distended, Guarding Bowel Sounds: Positive: Present Musculoskeletal: Positive: ROM Intact Neurological: Positive: Alert Psychological: Positive: Age Appropriate Behavior Skin Exam: Normal Diagnostics - Laboratory Diagnostic Studies Completed/Ordered: RAPID STREP=NEG. Course/Dx - Course Course Of Treatment: NOTHING TO SUGGEST URI AND NO ALLERGY S/S'S. EXAM C/W PHARYNGITIS AND BOTH FAMILY MEMBERS HAS + STREP TESTS THUS PT TO BE TX PRESUMPTIVELY. - Differential Dx - Multi-Symptom Provider Diagnoses: PHARYNGITIS Discharge - Sign-Out/Discharge Documenting (check all that apply): Patient Departure - Discharge Plan Condition: Stable Disposition: HOME Prescriptions: Azithromycin 500 mg PO DAILY 4 Days #4 tab Patient Education Materials: Pharyngitis (ED) Referrals: Lesa Rodriguez MD [Primary Care Provider] - 7 Days - Billing Disposition and Condition Condition: STABLE Disposition: Home
[2018-01-12] MEDS ORDERED: Azithromycin TAB* 250 MG PO ONE (21:23)
== END 2018-01-12 21:42 | disposition home or self-care (01) ==
LOC: UCCORT 20:31
DX: J02.9 Acute pharyngitis, unspecified (principal); Z88.0 Allergy status to penicillin; Z88.2 Allergy status to sulfonamides; Z88.5 Allergy status to narcotic agent
CPT/HCPCS: 87651; 99212; A9270-GY; G0463

== ENCOUNTER 2018-02-25 11:31 | Emergency (ER) | payer BC ==
[2018-02-25] MEDS ORDERED: Dexamethasone IV* 4 MG/ML 5 ML VIAL (20 MG) IVPB ONE (11:44)
[2018-02-25] MEDS ORDERED: Famotidine IV* 10 MG/ML 2 ML (20 mg) IV SLOW PU ONE (11:45)
[2018-02-25] MEDS ORDERED: NS 0.9% 1000 ML* 1,000 ML IV ONE (11:45)
[2018-02-25] MEDS ORDERED: methylPREDNISolone 125 MG* 2 ML VIAL IV ONE (11:57)
[2018-02-25 12:13] LABS: ABS Basophils 0.1 10^3/ul (0-0.2); ABS Eosinophils 0.1 10^3/ul (0-0.6); ABS Lymphocytes 2.2 10^3/ul (1.0-4.8); ABS Monocytes 0.5 10^3/ul (0-0.8); ABS Neutrophils 5.1 10^3/ul (1.5-7.7); ABS Nucleated RBC 0 10^3/ul; Eosinophil % 0.9 % (0-6); Hematocrit 41 % (35-47); Hemoglobin 14.2 g/dl (12.0-16.0); Lymphocyte % 27.9 % (25-47); Mean Corpuscular HGB Conc 35 g/dl (31-36); Mean Corpuscular Hemoglobin 29 pg (27-31); Mean Corpuscular Volume 84 fL (80-97); Mean Platelet Volume 7.4 um3 (7.4-10.4); Nucleated Red Blood Cells % 0.1; Platelet Count 303 10^3/ul (150-450); Red Cell Distribution Width 13 % (10.5-15)
--- NOTE | 2018-02-25 12:17 | ED ---
Allergic Reaction/Systemic - HPI Summary HPI Summary: Pt is a 27 y/o female BIBA who presents to the ED c/o allergic reaction s/p bee sting at 10:40. She was outside at school when a bee, possibly a yellow-jacket, stung her left forearm then flew away. 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 The Epi pen September 2017. Pt states the epinephrine and Benadryl helped her symptoms, but that her throat feels weird and slightly tight. She denies any trouble breathing. Pt had to use her Epi pen only once before. Her Nicolás is present in the room. Pts father is allergic to bees as well. Vital signs while in room: HR 98 bpm, BP 127/85. Home Medications Medication Instructions Recorded Confirmed Type Sertraline HCl [Zoloft] 25 mg PO BEDTIME 08/07/16 02/25/18 History Cetirizine* [ZyrTEC 10 MG TAB*] 10 mg PO BEDTIME 08/12/17 02/25/18 History - History of Current Complaint Chief Complaint: EDAllergicReaction Time Seen by Provider: 02/25/18 11:43 Hx Obtained From: Patient Hx Last Menstrual Period: 01/02/18 Onset/Duration: Sudden Onset, Started hours ago - 10:40, Resolved Timing: Constant Severity Currently: None Pain Intensity: 0 Pain Scale Used: 0-10 Numeric Location: Discrete @ - Bee sting left forearm, throat Character: Swelling Aggravating Factor(s): Other - Bee sting Alleviating Factor(s): OTC Meds - Benadryl, Epinephrine Associated Signs And Symptoms: Positive: Hoarseness, Throat Tightening. Negative: Difficulty Breathing - Allergies/Home Medications Allergies/Adverse Reactions: Allergies Allergy/AdvReac Type Severity Reaction Status Date / Time amoxicillin Allergy Anaphylatic Verified 01/12/18 20:57 Shock morphine Allergy GI Upset Verified 01/12/18 20:57 Sulfa (Sulfonamide Allergy Hives Verified 01/12/18 20:57 Antibiotics) IV dye Allergy Severe Hives Uncoded 01/12/18 20:57 PMH/Surg Hx/FS Hx/Imm Hx Endocrine/Hematology History: Denies: Hx Diabetes Cardiovascular History: Reports: Other Cardiovascular Problems/Disorders - Venous sinus thrombosis Denies: Hx Hypertension, Hx Pacemaker/ICD Respiratory History: Reports: Hx Asthma History: Denies: Hx Renal Disease Sensory History: Denies: Hx Hearing Aid Psychiatric History: Reports: Hx Anxiety Denies: Hx Panic Disorder - Surgical History Surgery Procedure, Year, and Place: wisdom teeth; x2. tubal ligation. right venous thromosis, brain 2009 - Immunization History Date of Tetanus Vaccine: Unk Date of Influenza Vaccine: Declines Infectious Disease History: No Infectious Disease History: Denies: History Other Infectious Disease, Traveled Outside the [place] in Last 30 Days - Family History Known Family History: Positive: Other - Bee allergy - father Negative: Hypertension, Diabetes - Social History Alcohol Use: Rare Hx Substance Use: No Substance Use Type: Reports: None Hx Tobacco Use: No Smoking Status (MU): Never Smoked Tobacco Have You Smoked in the Last Year: No Review of Systems Positive: Other - Throat "weird' and tight Negative: Shortness Of Breath All Other Systems Reviewed And Are Negative: Yes Physical Exam - Summary Physical Exam Summary: Appearance: Well-appearing, moderate pain distress, well-nourished Skin: Warm, dry, no urticarial, redness of left antecubital area Head: Normal Head/Face inspection, atraumatic Eyes: Conjunctiva clear ENT: No pharyngeal edema or erythema, clearing throat, hoarse voice Neck: Supple, no nodes, no JVD Respiratory: Lungs clear, normal breath sounds, no respiratory distress Cardio: RRR, No murmur, pulses normal, brisk capillary refill Abdomen: Soft, nontender Bowel sounds: Present Musculoskeletal: Strength Intact/ROM intact, no calf tenderness, no edema. Psychological: Normal Neuro: Alert, muscle tone normal, no focal deficit Triage Information Reviewed: Yes Vital Signs On Initial Exam: Initial Vitals Temp Pulse Resp BP Pulse Ox 98.4 F 108 18 127/85 100 02/25/18 11:36 02/25/18 11:36 02/25/18 11:36 02/25/18 11:36 02/25/18 11:36 Vital Signs Reviewed: Yes Diagnostics - Vital Signs Vital Signs Temp Pulse Resp BP Pulse Ox 02/25/18 11:36 98.4 F 108 18 127/85 100 - Laboratory Result Diagrams: 02/25/18 11:54 02/25/18 11:54 Lab Statement: Any lab studies that have been ordered have been reviewed, and results considered in the medical decision making process. - EKG 11:59 Cardiac Rate: NL - 92 bpm EKG Rhythm: Sinus Rhythm ST Segment: Non-Specific Ectopy: None EKG Interpretation: nml AV/IV CT, nml QTc, and nml axis. No acute changes. EKG Comparison: Other - No prior to compare. Re-Evaluation - Re-Evaluation First Eval Re-Evaluation Time: 13:39 Change: Improved Comment: Back to normal, voice is normal. Vitals: HR 83 bpm, BP 102/68. Allergic Reaction Course/Dx - Course Course Of Treatment: Pt is a 27 y/o female BIBA who presents to the ED c/o allergic reaction s/p bee sting at 10:40. An EKG revealed normal rate of 92 bpm , non-specific ST changes, nml AV/IV CT, nml QTc, and nml axis. - Diagnoses Provider Diagnoses: Anaphylaxis Discharge - Sign-Out/Discharge Documenting (check all that apply): Patient Departure - Discharge - Discharge Plan Condition: Stable Disposition: HOME Prescriptions: EPINEPHrine [Epipen 2-Uri] 0.3 mg IM ONCE PRN #1 inj PRN Reason: anaphylaxis Famotidine TAB 40 MG(NF) [Pepcid TAB 40 MG(NF)] 40 mg PO DAILY #5 tab predniSONE TAB* [Deltasone 20 MG TAB*] 40 mg PO DAILY #10 tab Patient Education Materials: Insect Bite or Sting (ED), Anaphylaxis (ED) Forms: *Work Release Referrals: Lesa Rodriguez MD [Primary Care Provider] - 2 Days Additional Instructions: You were given Solu-Medrol 125 mg IV. You are also given Pepcid 20 mg IV and 1 L of normal saline IV. Your symptoms resolved in the emergency department. We have prescribed another EpiPen [address] Osei recommends that you take prednisone 40 mg daily for 5 days more beginning tomorrow 02/26/18. She also recommends that you take Pepcid 40 mg for 5 days more once a day beginning . She also recommends that you take 2 more doses of Benadryl 50 mg today, one as soon as you spanish moss picker your prescriptions and once at bedtime tonight. He should continue your Zyrtec as directed and take Benadryl 50 mg again tomorrow night at bedtime. Consider reevaluation by an workers' compensation hearings officer for antivenom therapy. Return to the ER for any new or worsening symptoms. - Attestation Statements Document Initiated by Scribe: Yes Documenting Scribe: Indu Barroso Provider For Whom Scribe is Documenting (Include Credential): Cat Osei MD Scribe Attestation: Indu Nance, scribed for Cat Osei MD on 02/25/18 at 1502.
[2018-02-25 12:26] LABS: EGFR Non-African American 84.8 (>60)
--- OUTSIDE RECORDS SUMMARY | 2018-02-25 12:30 | XMS REPORT ---
:1990 External Reference #:[id number] Author Organization [facility] Address [address] [place] [address] Phone [phone] Care Team Providers Name Role Phone Lesa Rodriguez MD Primary Care Physician Unavailable Payers Type Date Identification Numbers Payment Provider Subscriber Commercial Effective: Policy Number: BS Facets Bakari Lu 2013 [id number] PayID: [id number] [address] [address] [place] [address] Problems Date Description Provider Status Onset: 04/17/2012 [...] smoked General Hx Text [employer]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 , lives with and 2 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 [...] Form Strength Qnty SIG Indications Ordering Provider Epipen 2-Uri 02/15 Active Solution 0.3mg/0.3 1unit use as Jordan Auto-Inject ML s directed(eliot Terrell NP rgic to bees) Zyrtec 01/20 Active Capsules 10mg 90cap 1 by mouth 995.3 Lesa Allergy s every day Magalis Rodriguez Sertraline Active Tablets 25mg 90tab 1 by mouth Lesa HCL / s every day Magalis Rodriguez Ibuprofen Active Tablets 200mg take 1-2 by Unknown / mouth every 8 hours, as needed for headache Azithromycin 01/12 Hx Tablets 500mg 4tabs Every Day - 01/19 Sumatriptan 07/15 Hx Tablets 100mg 12tab 1 tab by G43.709 Amanda Succinate s mouth as Cowdery, - needed for Jaimie.DSusana 02/04 migraine, october repeat after 2 hours; maximum 2 tablets in 24 hours, maximum 2 days a week. Azithromycin 08/28 Hx Tablets 250mg 6tabs 2 tabs by J01.90 Jordan mouth every HOLA Terrell - day x1 day, 1 09/01 tab by mouth /2016 every day x 4 days Amoxicillin/C 08/23 Hx Tablets 875-125mg 20tab take one J01.90 Jordan lavulanate s tablet q12 HOLA Terrell Potassium - hours for 10 Plus 07/11 Hx Tablets 27-1mg 30tab take one Verito s tablet by Varn, N.P. - mouth one 08/23 time daily /2016 Medrol (Uri) 05/29 Hx Tablets 4mg 21tab take 6 tabs M89.8x8 Jordan s day 1, 5 tabs HOLA Terrell - day 2, 4 tabs 08/21 day 3, 3 tabs /2015 day 4, 2 tabs day 5, and 1 tab day 6. Amoxicillin 04/10 Hx Suspension 250mg/5ML 200ml 10ml PO bid J02.9 Jordan Rec for 10 days HOLA Terrell - 04/20 Lidocaine 04/10 Hx Solution 2% 100ml gargle with J02.9 Jordan Viscous 15ml every 4 HOLA Terrell - hours as 04/15 needed for throat pain. Terazol 7 02/10 Hx Cream 0.4% 45gm Apply 616.10 Lesa /2015 intravaginall Cotton, - y QHS x 7 M.D. Metrogel-Vagi 02/01 Hx Gel 0.75% 70gm apply 616.10 [place] intravaginall Pachikara, - y every night M.D. 02/10 at bedtime 5 days Diflucan 02/01 Hx Tablets 150mg 1tabs 1 tab 1 dose 616.10 Pachikara, - M.D. 04/10 Vitamin D 10/26 Hx Capsules [id number] 12cap take one Jordan (Ergocalcifer /2014 s capsule once HOLA Terrell ol) - weekly for 12 08/21 weeks. Ferrous 10/26 Hx Tablets 325(65Fe) 30tab take 1 tablet Jordan Sulfate /2014 mg s once daily. HOLA Terrell - 08/21 Escitalopram 06/06 Hx Tablets 10mg 90tab take one Jordan Oxalate /2013 s tablet by HOLA Terrell - mouth once 05/29 daily. TGT ALL Day 10/15 Hx Tablets 10mg 30tab Take One 995.3 Bette Allergy s Tablet By Leslie Ordaz - Mouth One M.D. 01/20 Time Daily Lovenox 10/04 Hx Solution 40mg/0.4M 14uni sc every day Nohemy L Jennifer Romo M.D., FACP 06/02 Nasonex 10/04 Hx Suspension 50mcg/Act 1unit 2 sprays to 461.0 Nohemy s each nostril Mckenna, - once daily M.D., FACP 01/20 Amoxicillin 10/04 Hx Capsules 250mg 30cap three times a 461.0 Nohemy s day by mouth Mckenna, - for 10 days M.D., FACP 10/20 Cleocin-T 07/14 Hx Gel 1% 30gm apply 1 706.1 Bette application Ordaz, - topically to M.D. 07/28 affected area /2013 2 times per day for acne as needed 04/13 Hx Tablets 27-1mg 90tab take 1 tablet Jordan s daily HOLA Terrell - 12/21 Proventil HFA 02/09 Hx Aerosol 108(90Bas 1unit 2 puffs qid e) s prn Varn, N.P. - mcg/Act 08/23 Prednisone 02/09 Hx Tablets 10mg 40tab 4 tablets po 493.90 s for 4 days 3 Varn, N.P. - tablets po 02/25 for 4 days tablets po for 4 days 1 tablet po for 4 days Pulmicort 02/09 Hx Aerosol 180mcg/Ac 1unit 2 puffs twice 493.90 Verito t s daily Varn, N.P. - 03/11 Zithromax 02/09 Hx Tablets 250mg 1Pack as per Verito directions Varn, N.P. - 02/16 Clindamycin/B 07/20 Hx Gel 1.2-5% 45gm apply 1 706.1 Bette application Orlin Peroxide - topically to M.D. 03/12 affected area /2012 daily after washing inthe evening for acne Proventil HFA Hx Aerosol 108(90Bas 1unit 2 puffs qid Unknown /0000 e) mcg/ac s prn - 02/09 Advil 00 Hx Capsules 600mg 100ca prn Unknown /0000 ps - 10/04 Benadryl 00 Hx Capsules 50mg 60cap 2- 4 tabs for Unknown Allergy /0000 s allergies prn - 01/20 Zyrtec Hx Capsules 10mg 30cap 1 po qd 995.3 Lesa Allergy /0000 s Michael, - M.D. 10/15 Pulmicort 00 Hx Aerosol 180mcg/Ac 3unit 2 puffs twice Unknown Flexhaler / t s daily - 06/02 Tylenol 00/ Hx Tablets 325mg prn Unknown /0000 - 07/27 Lovenox 00 Hx Solution 40mg/0.4M 1 injection Unknown /0000 L subcutaneous - every 24 Immunizations CPT Code Status Date Vaccine Lot # [id number] Given 06/12/2014 Fluzone Vaccine Vital Signs Date Vital Result Comment 02/05/2018 Height 61 inches 5'1" Weight 163.00 lb Heart Rate 63 /min BP Systolic Sitting 119 mmHg BP Diastolic Sitting 86 mmHg O2 % BldC Oximetry 99 % BMI (Body Mass Index) 30.8 kg/m2 08/15/2017 Weight 160.25 lb Heart Rate 79 /min BP Systolic 110 mmHg BP Diastolic 62 mmHg Body Temperature 98.4 F O2 % BldC Oximetry 99 % 07/15/2017 Height 61 inches 5'1" Weight 158.00 [...] Test Result H/L Range Note Laboratory test 01/12/2018 Rapid Strep Negative Negative 1 finding Molecular Laboratory test 11/18/2017 Cytology SEE RESULT BELOW 2 finding Rapid Influenza A & 08/12/2017 Influenza A NEGATIVE Negative 3 B Molecular Molecular Influenza B Molecular NEGATIVE Negative Laboratory test 08/12/2017 Rapid Strep Molecular POSITIVE Negative 4 finding Laboratory test 05/24/2016 D Dimer Quantitative < 200 ng/mL Less Than 230 5 finding CBC No Diff 03/04/2016 White Blood [...] Color Yellow Urine Appearance Clear Urine Specific [place] 1.004 Low 1.010-1.030 Urine pH 7.0 5-9 [...] And 02/29/2016 Urine Culture SEE RESULT BELOW 6 Sensitivities Laboratory test finding 04/11/2015 Vitamin D Total 38.5 ng/mL 30-50 25(Oh) Lyme Disease Serology Negative Negative 7 CBC Auto Diff 04/11/2015 White Blood Count [...] Blood Cells % 0.1 Laboratory test finding 04/10/2015 Culture Throat SEE RESULT BELOW 8 Laboratory test finding 04/10/2015 Rapid Group A Strep negative Ua Routine 02/01/2015 Ua Specific [place] 1.010 Ua PH 5.0 Ua Color yellow Ua Appera clear Ua WBC trace Ua Protein neg Ua Glucose neg Ua Ketones neg Ua Bilirubin small Ua Urobilinogen norn Ua Nitrite neg Ua Occult Blood neg Laboratory test 02/01/2015 Culture Genital & SEE RESULT BELOW 9 finding Sensitivity GC/Chlamydia 02/01/2015 Chlamydia trachomatis Negative Negative Amplified Rna Rna Neisseria gonorrhoeae (GC) Rna Negative Negative 10 Laboratory test finding 01/25/2015 Ferritin 49.2 ng/mL 11-307 Vitamin D Total 25(Oh) 42.4 ng/mL 30-50 Laboratory test finding 10/26/2014 C Reactive Protein 1.26 mg/L < 5.00 11 Erythrocyte Sed Rate 12 mm/Hr 0-14 Ferritin [...] Egfr Non- 97.9 >60 Egfr 125.9 >60 12 Laboratory test finding 10/26/2014 Vitamin D Total 25(Oh) 20.4 ng/mL Low 30-50 Rheumatoid Factor <15 IU/mL <15 13 Marlene (Anti-Nuclear AB) Screen Negative Negative Cyclic Citrullinated Pept IgG <15.6 U 14 Laboratory test finding 10/25/2014 Test Urine negative Laboratory test finding 07/27/2014 Rapid Influenza A B (SEE NOTE) 15 Antigen CBC Auto Diff 03/23/2014 White Blood Count [...] 0-2 Nucleated Red Blood Cells % 0.1 Type & Screen 03/23/2014 Patient Blood Type B Positive Antibody Screen NEGATIVE Throat-Beta Strept 10/02/2013 Throat Beta Strep (SEE NOTE) 16 Culture Factor II (Prothrombin) 05/17/2013 Prothrombin 16501 Negative Negative Genoty Mutation Prothrombin [id number] Interp See Comment 17 Prothrombin Mutation Review By See Comment 18 Factor 5 Leiden Mutation 05/17/2013 Factor V Leiden Mutation Negative Negative Factor V Leiden Interpretation See Comment 19 Factor V Leiden Reviewed By See Comment 20 Lupus Anticoagulant AB 05/17/2013 Prothrombin Time(Lac) 10.2 sec 21 Lac Inr 0.9 Lac Aptt 31 sec 26 - 36 Lac DRVVT Screen Ratio 1.0 ratio 0.0 - 1.1 Lupus Anticoagulant Interpreta See Comment 22 Laboratory test finding 05/17/2013 Anti Thrombin III 100 % 80 - 130 23 Activity Cardiolipin Igg,Igm,Iga AB 05/17/2013 Cardiolipin IgG <4.0 GPL 24 Cardiolipin IgM <4.0 MPL 25 Cardiolipin IgA <4.0 APL 26 Laboratory test finding 05/17/2013 Protein C Activity 125 % 70 - 150 27 Protein C Antigen 99 % 70-150 28 Protein S Activity 79 % 50 - 160 29 Protein S Antigen 76 % 50 - 160 30 Laboratory test finding 03/24/2013 Beta HCG Quantitative < 2.1 MIU/ML 0.0 -5.0 31 Affirm Vaginal Dna 03/14/2013 Affirm Vaginal Dna Probe (SEE NOTE) 32 Probe GC/Chlamydia Amplified 03/14/2013 GC/Chlamydia Rna (SEE [...] 0-2 Nucleated Red Blood Cells % 0 Inr/Protime 03/14/2013 Inr 0.93 0.87-0.97 Laboratory test finding 03/14/2013 Activated Partial 31.9 seconds 22.18- 37.18 34 Thrombo Time Abo/RH Type 03/14/2013 Patient Blood Type B Positive Comp Metabolic Panel 03/14/2013 Sodium 135 mmol/L [...] Egfr Non- 122.8 >60 Egfr 158.0 >60 35 Laboratory test finding 03/14/2013 Beta HCG Quantitative 53.0 MIU/ML High 0.0-5.0 36 Urinalysis 03/14/2013 Urine Color Yellow Urine Appearance Clear Urine Specific [place] 1.022 1.010-1.030 Urine Esterase Negative Negative Urine Nitrate Negative Negative Urine Urobilinogen Negative E.U./dL Negative Urine Protein Negative mg/dL Negative Urine pH 6.5 5-9 Urine Blood 1+ Negative Urine Ketones Negative mg/dL Negative Urine Bilirubin Negative Negative Urine Glucose Negative mg/dL Negative Urine Microscopic 03/14/2013 Urine WBC None Seen None Seen Urine RBC 2+ (>3-10 /hpf) None Seen Urine Epithelial Cells 2+ Squamous /hpf None Seen Bacteria Urine 2+ None Seen Urine Culture And 03/14/2013 Urine Culture (SEE NOTE) 37 Sensitivities Laboratory test finding 03/12/2013 Beta HCG Quantitative 40.0 MIU/ML High 0.0-5.0 38 Vitamin D, 25 Hydroxy 02/16/2013 25-Hydroxy Vitamin D2 <4.0 ng/mL 25-Hydroxy Vitamin D3 37 ng/mL 25-Hydroxy Vitamin D Total 37 ng/mL 39 Vitamin D 1,25 And Vitamin 02/16/2013 Vitamin D 1,25-Dihydroxy 86 pg/mL 18-78 40 D,2 Laboratory test finding 02/16/2013 Rheumatoid Factor <15 IU/mL <15 41 Marlene (Anti-Nuclear AB) Screen Negative Negative 42 Cyclic Citrullinated Pept IgG <15.6 U 43 Laboratory test finding 02/09/2013 Lyme Disease Serology Negative Negative 44 Erythrocyte Sed Rate 38 mm/Hr High 0-14 C Reactive Protein 0.7 mg/dL High Less than 0.5 Laboratory test finding 12/30/2012 TSH (Thyroid Stimulating 1.07 miu/mL 0.34-5.60 Horm) Laboratory test finding 12/30/2012 Test Urine neg Ua Routine 12/30/2012 Ua Specific [place] 1.005 Ua PH 7.5 Ua Color yellow Ua Appera clear Ua WBC trace Ua Protein trace Ua Glucose neg Ua Ketones neg Ua Bilirubin neg Ua Urobilinogen neg Ua Nitrite neg Ua Occult Blood neg Laboratory test 04/08/2012 D Dimer Quantitative < 200 NG/ML Less Than 230 45 finding Laboratory test 04/08/2012 Creatine Kinase 162 U/L 0-200 finding C Reactive Protein 0.6 mg/dL High Less Than 0.5 1 General Maintenance Engineer: [id number] SEE RESULT BELOW Name: BAKARI LU : [address]: Arlene Carter MD Acct: [id number] Unit: [id number] AGE: 27 Location: [facility] Re11/18/17 SEX: F Status: REG REF SPEC: [id number] EMILY: 11/18/17-[address]: Arlene Carter MD REQ: [id number] RECD: 11/18/17152 STATUS: TEE STORY DR: Lesa Rodriguez MD _ ORDERED: TP IMAGE ANALYS COMMENTS: [id number] Negative for Intraepithelial lesion or Malignancy A. Ectocervical/Endocervical Specimen Adequacy: Satisfactory of evaluation Transformation zone component identified Patient Information: HPV: Thin Layer Pap Test w/reflex to high risk HPV RNA testing when ASCUS Actual Specimen Date: 11/18/17 Last Menstrual Date: 10/31/17 Date of Last Specimen: 11/13/16 Signed by and Reported on: FARHAT Millan (ASCP) 1411 This Pap test was evaluated with the assistance of the [employer] (PIROX)p Test Imaging System. Due to cytologic findings at the deboning team leader microscope, comprehensive manual rescreening by a Manager Epic may be required. The Pap Smear is a screening test designed to aid in the detection of premalignant and malignant conditions of the uterine cervix. It is not a diagnostic procedure and should not be used as the sole means of detecting cervical cancer. Both false- positive and false- negative reports do occur. Depending on your risk status, a Pap smear should be obtained and evaluated every 1-3 years. END OF REPORT DEPARTMENT OF PATHOLOGY, [address] [place] [address] Sukhdev Young M.D. Director [facility] # [id number] General Maintenance Engineer: [id number] General Maintenance Engineer: [id number] Please note: The following may produce a false positive D Dimer test: - Rheumatoid factor greater than 60 IU/ml - Plasma hemoglobin greater than 0.05 gm/dl - Bilirubin greater than 50 mg/dl - Lipids greater than 1000 mg/dl - FDP greater than 20 ug/ml 6 SEE RESULT BELOW Name: BAKARI LU : [address]: Jasson Mar MD Acct: [id number] Unit: [id number] AGE: 25 Location: [facility] Re02/29/16 SEX: F Status: REG REF SPEC: [id number] EMILY: 02/29/16-[address]: Jasson Mar MD REQ: [id number] RECD: 02/29/16-125 STATUS: JADEN STORY DR: Lesa Rodriguez MD _ SOURCE: URINE SPDESC: ORDERED: Urine Culture Procedure Result Reported Site Urine Culture Final 03/01/16- 1207 ML No Growth (<1,000 CFU/mL) * ML - [facility] ([facility]) . END OF REPORT * ML=Testing performed at Main Lab DEPARTMENT OF PATHOLOGY, [address] [place] [address] Sukhdev Young M.D. Director [facility] # [id number] 7 Serologic response to B. burgdorferi infection is not detected, but cannot rule out early infection during which low or undetectable antibody levels to B. burgdorferi may be present. If clinically indicated, a new serum specimen should be submitted in 7-14 days. Test Performed by: [place] [address] Die Maintenance Technician: Gordon Grewal II, M.D., Ph.D. 8 SEE RESULT BELOW Name: BAKARI LU : [address]: Jordan Terrell NP Acct: [id number] Unit: [id number] AGE: 24 Location: [facility] Re04/10/15 SEX: F Status: REG REF SPEC: [id number] EMILY: 04/10/[address]: Jordan Terrell NP REQ: [id number] RECD: 04/10/15 STATUS: COMP _ SOURCE: THROAT [...] performed at Main Lab DEPARTMENT OF PATHOLOGY, [address] [place] [address] Sukhdev Young M.D. Director [facility] # [id number] 9 SEE RESULT BELOW Name: BAKARI LU : [address]: Fuad Bernal MD Acct: [id number] Unit: [id number] AGE: 24 Location: [facility] Re02/01/15 SEX: F Status: REG REF SPEC: [id number] EMILY: 02/01/15-[address]: Fuad Bernal MD REQ: [id number] RECD: 02/01/15 STATUS: COMP _ SOURCE: CERVIX SPDESC: ORDERED: Genital Culture Procedure Result Verified Site Genital Culture Final 02/03/15- 901 ML Organism 1 NORMAL YENY Quantity 2+ * ML - MAIN LAB ([facility]) . END OF REPORT * ML=Testing performed at Main Lab DEPARTMENT OF PATHOLOGY, [address] [place] [address] Sukhdev Young M.D. Director [facility] # [id number] 10 Female urine specimens have been self-validated by [facility] and have been granted conditional assay approval by [facility]. 11 Acute inflammation: >10.00 12 Because ethnic data is not always readily [...] 15-29 5 Kidney failure <15 (or dialysis) 13 Test Performed by: [facility] [address] [place] [address] Die Maintenance Technician: Gordon Grewal II, M.D., Ph.D. 14 REFERENCE VALUE <20.0 (Negative) Test Performed by: [facility] [address] [place] [address] Die Maintenance Technician: Gordon Grewal II, M.D., Ph.D. 15 RUN DATE: 07/27/14 [facility] LIVE PAGE 1 RUN TIME: [address] [place] [address] Specimen Inquiry Name: BAKARI LU : [address]: Jordan Terrell NP Acct: [id number] Unit: [id number] AGE: 23 Location: [facility] Re07/27/14 SEX: F Status: REG REF SPEC: [id number] EMILY: 07/27/14-[address]: Jordan Terrell NP REQ: [id number] RECD: 07/27/14 STATUS: COMP _ SOURCE: KENDY SPDESC: ORDERED: Rapid Flu A B QUERIES: Provider Requisition # [id number] Procedure Result Verified Site Rapid Influenza A B Antigen Final 07/27/14- 1940 ML Organism 1 Negative Influenza A B Antigen testing by enzyme immunoassay. Cell culture testing can be performed to confirm negative test results and to assist in detecting other viruses that can produce similar clinical symptoms. Please notify Microbiology Lab if further testing is desired. END OF REPORT * ML=Testing performed at Main Lab DEPARTMENT OF PATHOLOGY, [facility] [employer] [place], [place] [address] Sukhdev Young M.D. Director [facility] # [id number] 16 RUN DATE: 10/04/13 [facility] LIVE PAGE 1 RUN TIME: [address] [place] [address] Specimen Inquiry Name: BAKARI LU : [address]: Mary Beth Alfred MD Acct: [id number] Unit: [id number] AGE: 23 Location: [facility] Re10/02/13 SEX: F Status: DEP ER SPEC: [id number] EMILY: 10/02/[address]: Mary Beth Alfred MD REQ: [id number] RECD: 10/02/13 STATUS: JADEN STORY DR: Bette Dove MD _ SOURCE: THROAT SPDESC: ORDERED: Throat Beta Str Procedure Result Verified Site Throat Beta Strep Culture Final 10/04/13- 0814 ML Negative For Group A Beta Streptococcus END OF REPORT * ML=Testing performed at [facility] DEPARTMENT OF PATHOLOGY, [address] [place] [address] Sukhdev Young M.D. Director [facility] Permit #[id number] 17 This individual DOES NOT have the Prothrombin [id number] mutation. Although the Prothrombin G50690F mutation is absent, the individual may have other genetic and environmental risk factors for thrombosis. If clinically indicated, suggest Coagulation Consultation 75298 (Thrombophilia Profile) to complete the evaluation for an inherited or acquired thrombosing disorder (i.e., thrombophilia). Consider genetic consultation and counseling of potentially affected family members regarding laboratory testing. This test is a direct mutation analysis using PCR amplification, signal generation and release by cleavage of sequence specific alleles ([employer], [employer], [place], [place]). 18 RESULT: Evans Lacy M.D., Ph.D. Test Performed by: [place] [address] Die Maintenance Technician: Johnson Montgomery III, M.D. 19 This individual DOES NOT have the factor V Leiden (R506Q) mutation. Although the factor V Leiden mutation is absent, the individual may have other genetic and environmental risk factors for thrombosis. If clinically indicated, suggest Coagulation Consultation 63708 (Thrombophilia Profile) to complete the evaluation for an inherited or acquired thrombosing disorder (i.e., thrombophilia). This test is a direct mutation analysis using PCR amplification, signal generation and release by cleavage of sequence specific alleles ([employer], [employer], [place], [place]). 20 RESULT: Evans Lacy M.D., Ph.D. Test Performed by: [place] [address] Die Maintenance Technician: Johnson Montgomery III, M.D. 21 -- REFERENCE VALUE -- 10.3 - 12.8 22 No evidence of a lupus-like anticoagulant based on results of Prothrombin Time (PT), Activated Partial Thromboplastin Time (APTT), and Dilute [place] Viper Venom Time (DRVVT). Interpretation not reviewed by physician. Test Performed by: [place] [address] Die Maintenance Technician: Johnson Montgomery III, M.D. 23 Test Performed by: [place] [address] Die Maintenance Technician: Johnson Montgomery III, M.D. 24 -- REFERENCE VALUE -- <10.0 (Negative) 25 -- REFERENCE VALUE -- <10.0 (Negative) 26 -- REFERENCE VALUE -- <10.0 (Negative) Test Performed by: [place] [address] Die Maintenance Technician: Johnson Montgomery III, M.D. 27 Test Performed by: [place] [address] Die Maintenance Technician: Johnson Montgomery III, M.D. 28 Test Performed by: [place] [address] Die Maintenance Technician: Johnson Montgomery III, M.D. 29 Heparin levels greater than 1 U/ml, inhibitors [...] absence of anticoagulation therapy. Test Performed by: [place] [address] Die Maintenance Technician: Johnson Montgomery III, M.D. 30 Test Performed by: [place] [address] Die Maintenance Technician: Johnson Montgomery III, M.D. 31 Males: < 5.0 miu/ml Non females < [...] be confirmed by an alternate HCG method. 32 RUN DATE: 03/14/13 [facility] LIVE PAGE 1 RUN TIME: [address] [place] [address] Specimen Inquiry Name: BAKARI LU : [address]: Jasson Llanes MD Acct: [id number] Unit: [id number] AGE: 22 Location: ED Re03/14/13 SEX: F Status: REG ER SPEC: [id number] EMILY: 03/14/13-[address]: Jasson Llanes MD REQ: [id number] RECD: 03/14/13-131 STATUS: JADEN STORY DR: Bette Ordaz MD [...] performed at Main Lab DEPARTMENT OF PATHOLOGY, [address] [place] [address] Sukhdev Young M.D. Director [facility] Permit #[id number] 33 RUN DATE: 03/16/13 [facility] LIVE PAGE 1 RUN TIME: [address] [place] [address] Specimen Inquiry Name: ALYBAKARI : [address]: Jasson Llanes MD Acct: [id number] Unit: [id number] AGE: 22 Location: ED Re03/14/13 SEX: F Status: DEP ER SPEC: [id number] EMILY: 03/14/13-[address]: Jasson Llanes MD REQ: [id number] RECD: 03/14/13131 STATUS: JADEN STORY DR: Bette Ordaz MD _ SOURCE: ENDOCERVIX SPDESC: ORDERED: BIJU/Shekharam RNA Procedure Result Verified Site Chlamydia Trachomatis [...] result may have adverse psychosocial impact, the CDC recommends retesting by a method using an [...] performed at Main Lab DEPARTMENT OF PATHOLOGY, [facility] [employer] [place], [place] [address] Sukhdev Young M.D. Director [facility] Permit #[id number] RUN DATE: 03/16/13 [facility] LIVE PAGE 2 RUN TIME: 1225 [facility] [employer] [place], [place] [address] Specimen Inquiry Patient: BAKARI LU Eriberto [id number] (Continued) Specimen: [id number] Collected: 03/14/13-1299 Received: 03/14/13-1310 (Continued) Procedure Result Verified Site GC (N. gonorrhoeae) RNA Final (continued) 03/16/13- 1225 N. gonorrhoeae are derived from high prevalence populations. Positive results in low prevalence populations should be interpreted carefully with the understanding that the likelihood of a false positive may be higher than a true positive. END OF REPORT * ML=Testing performed at Main Lab DEPARTMENT OF PATHOLOGY, [address] [place] [address] Sukhdev Young M.D. Director [facility] Permit #[id number] 34 Comment: n Comment: d 35 Because ethnic data is not always readily [...] 15-29 5 Kidney failure <15 (or dialysis) 36 Males: < 5.0 miu/ml Non females < [...] be confirmed by an alternate HCG method. 37 RUN DATE: 03/16/13 [facility] LIVE PAGE 1 RUN TIME: [address] [place] [address] Specimen Inquiry Name: BAKARI LU : [address]: Jasson Llanes MD Acct: [id number] Unit: [id number] AGE: 22 Location: ED Re03/14/13 SEX: F Status: DEP ER SPEC: [id number] EMILY: 03/14/[address]: Jasson Llanes MD REQ: [id number] RECD: 03/14/13 STATUS: JADEN STORY DR: Bette Ordaz MD _ SOURCE: URINE SPDESC: ORDERED: Urine Culture Procedure Result Verified Site Urine Culture Final 03/16/13- 0949 ML Organism 1 NORMAL YENY [place] Count 50-75,000 (Many) CFU/ML END OF REPORT * ML=Testing performed at Main Lab DEPARTMENT OF PATHOLOGY, [address] [place] [address] Sukhdev Young M.D. Director [facility] Permit #[id number] 38 Males: < 5.0 miu/ml Non females < [...] be confirmed by an alternate HCG method. 39 -- REFERENCE VALUE -- 25-HYDROXY D TOTAL (D2+D3) Optimum levels in the normal population are 25-80 Test Performed by: [place] [address] Die Maintenance Technician: Johnson Montgomery III, M.D. 40 Test Performed by: [address] [address] Die Maintenance Technician: Johnson Montgomery III, M.D. 41 Test Performed by: [address] [address] Die Maintenance Technician: Johnson Montgomery III, M.D. 42 @Sample frozen by [id number] at 2117 on 02/16/13. 43 -- REFERENCE VALUE -- <20.0 (Negative) Test Performed by: [address] [address] Die Maintenance Technician: Johnson Montgomery III, M.D. 44 Serologic response to B. burgdorferi infection is not detected, but cannot rule out early infection during which low or undetectable antibody levels to B. burgdorferi may be present. If clinically indicated, a new serum specimen should be submitted in 7-14 days. Test Performed by: [facility] - [address] [address] Die Maintenance Technician: Johnson Montgomery III, M.D. 45 Please note: The following may produce a false positive D Dimer test: - Rheumatoid factor greater than 60 IU/ml - Plasma hemoglobin greater than 0.05 gm/dl - Bilirubin greater than 50 mg/dl - Lipids greater than 1000 mg/dl - FDP greater than 20 ug/ml Procedures Date CPT Code Description Status 05/29/2015 86546 EKG Tracing & Interpretation Completed 02/09/2013 72042 Inhalation [place] For Acute Airway Obstruction Completed W/Nebulizer/Inhaler Encounters Type Date Location Provider CPT E/M Dx Office Visit 08/15/2017 [facility] Internal Medicine Lesa Rodriguez 32561 J02.9 3:40p - Levi Blancas Office Visit 07/15/2017 Jeremy Campbell M.D. 59993 G43.709 4:00p [facility] Z86.718 Office Visit 05/14/2017 10:50a [facility] Internal Medicine Maria D Saldaña [address]8851 J06.9 - [place] Blancas Office Visit 12/10/2016 3:45p Mil/Donna Campbell 82726 G43.709 [facility] Blanc[facility] Z86.718 Office Visit 08/28/2016 4:00p [facility] [place] [address] J01.90 Ary Office Visit 08/23/2016 1:00p [facility] [place] [address] J01.90 Ary Office Visit 02/05/2016 2:00p [facility] Amanda Campbell 80208 O99.353 Services Of Noah Blancas G43.709 O99.89 Z86.718 Z3A.32 Office Visit 09/22/2015 10:00a [facility] Amanda Campbell, 56799 G43.709 Magalis Z86.718 Office Visit 05/29/2015 3:40p [facility] [place] [address] R07.9 Ary M89.8x8 R07.82 Office Visit 04/10/2015 4:00p [facility] [place] [address] J02.9 Ary E55.9 M25.50 Office Visit 02/01/2015 1:20p [facility] Medicine Fuad Bernal, 70843 599.0 - Levi Blancas 616.10 Office Visit 01/02/2015 2:40p [facility] Internal Medicine Verito Wade N.P. 23256 611.71 - Ary Office Visit 10/25/2014 4:00p [facility] [place] [address] 626.4 - Ary 719.99 729.1 719.49 Office Visit 09/16/2014 4:00p [facility] Medicine Nelida Caceres M.D. 69781 461.9 - Ary Office Visit 07/27/2014 3:30p [facility] [place] [address] 300.02 - Ary 465.9 Office Visit 06/17/2014 9:00a [facility] [place] [address] 300.02 Ary 787.02 Office Visit 06/03/2014 4:00p [facility] [place] [address] 300.02 - Ary Office Visit 01/20/2014 2:40p [facility] Internal Medicine Lesa Rodriguez, 656[address] V01.79 - Levi Blancas Office Visit 10/04/2013 12:00p [facility] Nohemy Andres M.D., 78346 461.0 - Ary FACP Office Visit 07/28/2013 11:20a [facility] Bette Odraz M.D. 64871 784.0 - Ary Office Visit 07/14/2013 2:40p [facility] Medicine Bette Ordaz M.D. 70344 706.2 - Ary 706.1 Office Visit 04/13/2013 3:20p [facility] Internal Medicine - Bette Ordaz M.D. 63522 626.4 Ary 293.83 Office Visit 03/12/2013 2:20p [facility] Internal Medicine - Bette Ordaz M.D. 59134 626.0 Ary 787.02 Office Visit 02/16/2013 3:00p [facility] Medicine Verito Wade, N.P. 83611 493.90 - Ary 719.49 Office Visit 02/09/2013 1:00p [facility] Medicine Verito Wade, N.P. 90040 493.90 - Ary 719.49 Office Visit 01/20/2013 4:20p [facility] Internal [facility] - Bette Ordaz M.D. 01668 620.2 Ary Office Visit 12/30/2012 3:40p [facility] Internal Medicine - Bette Ordaz M.D. 20103 789.07 Ary 787.02 626.0 Office Visit 07/20/2012 4:20p [facility] Internal Medicine - Bette Ordaz M.D. 44342 493.90 Ary 786.05 706.1 Office Visit 04/17/2012 3:40p [facility] - Bette Ordaz M.D. 13560 719.46 Ary 995.3 493.90 Office Visit 04/08/2012 3:40p [facility] - Bette Ordaz M.D. 79075 719.47 Ary Plan of Care Future Appointment(s):02/20/2018 3:00 pm - Amanda Campbell M.D. at [facility]02/05/2018 - Lesa Rodriguez M.D.F41.9 Anxiety disorder, unspecifiedComments:To wean off sertraline2-4 weeks: alternate whole with half2-4 weeks: take 1/2 every day2-4 weeks: take 1/2 every other day, then stopFollow up:prnR03.0 Elevated blood-pressure reading, w/o diagnosis of htnComments:It's great that you are exercising!Stay on the dietAvoid coffee for an hour before taking BPB07.9 Viral wart, unspecified
[2018-02-25 15:02] VITALS: BP 0/0
== END 2018-02-25 15:00 | disposition home or self-care (01) ==
LOC: ED 11:31
DX: T63.441A Toxic effect of venom of bees, accidental (unintentional), initial encounter (principal); R07.0 Pain in throat; Y92.9 Unspecified place or not applicable
CPT/HCPCS: 36415; 80053; 85025; 86140; 93005; 96374; 96375; 99282; J1100; J2930

== ENCOUNTER 2018-08-31 15:51 | Emergency (ER) | payer BC ==
--- OUTSIDE RECORDS SUMMARY | 2018-08-31 16:05 | XMS REPORT | Continuity of Care Document ---
:1990 External Reference #:[id number] Author Name Vonnie Lorenzana CNM Address [address] [place] [address] Care Team Providers Name Role Phone Dariela Rodriguez Primary Care Physician Unavailable Payers Date Identification Numbers Payment Provider Subscriber Effective: Policy Number: [id number] Isamar MARES/OLIVIER Billings Bakari Lu 2015 [place] PayID: [id number] [address] [address] [place] [address] Advance Directives Description No Information Available Problems Date Description Provider Status Onset: 09/15/2013 History of thromboembolism of vein Carlos Silverman CNM Active Onset: 08/25/2015 Supervision of high risk with Carlos Silverman CNM Active history of previous section done Family History Date Family Member(s) Observation Comments Father Hypertension Father blood clots Lifelong anticoagulation Mother Hypercholesterolemia Mother Hypothyroidism Mother Asthma Children 2 First Daughter A&W Second Daughter A&W Siblings 1 First Sister A&W Paternal Grandfather due to Emphysema () Paternal Grandmother due to Stroke () Maternal Grandfather due to Liver Cancer () Maternal Grandmother due to Heart Disease () Social History Type Date Description Comments Sex Unknown Education Highest Level Completed, Master's Degree Marital Status Lives With Lives With Daughters Diet Healthy, Well Balanced Pets 1 dog 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 Environmental Hazards Not exposed to any environmental hazards Environmental Hazards Low Lead Risk Tobacco Use Start: Unknown Never Smoked Cigarettes ETOH Use Occasionally consumes alcohol Recreational Drug Use Denies Drug Use Tobacco Use Start: Unknown Patient has never smoked Smoking Status Reviewed: 04/14/18 Patient has never smoked Exercise Type/Frequency Exercises regularly Seat Belt/Car Seat Always uses seat belt Currently Active Patient is currently sexually active Contraceptive Methods Current methods include tubal ligation STD's No STD History Allergies, Adverse Reactions, Alerts Date Description Reaction Status Severity Comments 04/28/2013 Sulfa Hives Active Severe 08/25/2015 Contrast Dye Hives Active Severe Iodine 11/10/2015 narcotic Active 04/21/2017 Amoxicillin Active Medications Medication Date Status Form Strength Qnty SIG Indications Ordering Provider Metronidazole Active Tablets 500mg 14tabs take one Vonnie 019 by mouth Maccarald, twice CNM daily for 7 days Zyrtec Allergy Active Tablets 10mg 30tabs 1 po qd Unknown 000 Zoloft Active Tablets 25mg Unknown 000 Fluconazole Hx Tablets 150mg 2tabs take 1 B37.3 Jasson A. 017 - tablet Gelber, once, M.D. 018 repeat in 3 days if needed Nystop Hx Powder [id number] 60gm apply to Carlos 016 - /GM area BId Silverman, CNM for 2 017 weeks Lovenox Hx 40mg Jasson A. 016 - Gelber, M.D. 017 Heparin Hx Solution 50-5Unit/M Jasson A. Sodium/D5W 016 - L-% Gelber, M.D. 016 Nystop Hx Powder [id number] 60gm apply to Arlene 014 - /GM area BId Raul, for 2 MD 015 weeks Plus /0 Hx Tablets 27-1mg 90tabs 1 po qd Unknown 000 - 017 Lovenox /00/0 Hx Solution 40mg/0.4ML Unknown 000 - 013 Heparin Sodium 00/0 Hx Unknown (Porcine) PF 000 - 014 Lovenox 00/00/0 Hx 40mg Unknown 000 - 015 Lexapro /00/0 Hx Unknown 000 - 016 Lovenox 00/00/0 Hx Solution 40mg/0.4ML Unknown 000 - 016 Colace /0 Hx Capsules 100mg 1 PO Unknown 000 - every other 017 day Medications Administered in Office Medication Date Status Form Strength Qnty SIG Indications Ordering Provider PT SCRN Tbco Administered Injection Arlene Id as Non User 018 MD Raul PT SCRN Tbco Administered Injection Arlene Id as Non User 018 MD Raul PT SCRN Tbco Administered Injection Dvorah Id as Non User 018 Magalis Wolfe Immunizations CPT Code Status Date Vaccine Lot # [id number] Given 01/23/2016 Tetnus, Diptheria Toxoids And Acellular Pertussis, [id number] PT > 7Yrs Old [id number] Given 03/04/2014 Tetnus, Diptheria Toxoids And Acellular Pertussis, [id number] PT > 7Yrs Old Vital Signs Date Vital Result Comment 08/12/2018 1:01pm BP Systolic 110 mmHg BP Diastolic 70 mmHg Body Temperature 97.9 F Height 61 inches 5'1" Weight 170.00 lb BMI (Body Mass Index) 32.1 kg/m2 Last Menstrual Period 7662636 3 Parity 2 04/14/2018 1:44pm BP Systolic 124 mmHg BP Diastolic 82 mmHg Height 61 inches 5'1" Weight 167.00 lb BMI (Body Mass Index) 31.6 kg/m2 Last Menstrual Period 7257710 3 Parity 2 11/18/2017 10:28am BP Systolic 108 mmHg BP Diastolic 74 mmHg Height 61 inches 5'1" Weight 163.00 lb BMI (Body Mass Index) 30.8 kg/m2 Last Menstrual Period 5891492 3 Parity 2 07/03/2017 10:50am BP Systolic 120 mmHg BP Diastolic 80 mmHg Height 61 inches 5'1" Weight 158.00 lb BMI (Body Mass Index) 29.9 kg/m2 Last Menstrual Period 8018110 3 Parity 2 04/21/2017 3:37pm BP Systolic 128 mmHg BP Diastolic 86 mmHg Height 61 inches 5'1" Weight 158.00 lb BMI (Body Mass Index) 29.9 kg/m2 Last Menstrual Period 7565918 3 Parity 2 11/13/2016 1:23pm BP Systolic 110 mmHg BP Diastolic 72 mmHg Height 61 inches 5'1" Weight 170.00 lb BMI (Body Mass Index) 32.1 kg/m2 Last Menstrual Period 1580574 3 Parity 2 04/29/2016 3:45pm BP Systolic 128 mmHg BP Diastolic 76 mmHg Height 61 inches 5'1" Weight 174.00 lb BMI (Body Mass Index) 32.9 kg/m2 Last Menstrual Period 9137268 3 Parity 2 04/08/2016 12:34pm BP Systolic 120 mmHg BP Diastolic 78 mmHg Body Temperature 98.8 F Oral Height 61 inches 5'1" Weight 176.00 lb BMI (Body Mass Index) 33.3 kg/m2 Last Menstrual Period 6586477 3 Parity 2 04/05/2016 10:37am BP Systolic 118 mmHg BP Diastolic 72 mmHg Body Temperature 98.2 F Height 61 inches 5'1" Weight 179.00 lb BMI (Body Mass Index) 33.8 kg/m2 Last Menstrual Period 7030771 3 Parity 2 03/22/2016 2:37pm BP Systolic 120 mmHg BP Diastolic 80 mmHg Body Temperature 98.5 F Heart Rate 70 /min Respiratory Rate 18 /min Height 61 inches 5'1" Weight 191.00 lb BMI (Body Mass Index) 36.1 kg/m2 Last Menstrual Period 8781292 3 Parity 1 08/25/2015 1:10pm BP Systolic 118 mmHg BP Diastolic 68 mmHg Height 61 inches 5'1" Weight 168.00 lb BMI (Body Mass Index) 31.7 kg/m2 Last Menstrual Period 3998162 3 Parity 1 08/04/2015 1:50pm BP Systolic 122 mmHg BP Diastolic 66 mmHg Height 61 inches 5'1" Weight 166.00 lb BMI (Body Mass Index) 31.4 kg/m2 Last Menstrual Period 2857838 09/21/2014 12:46pm BP Systolic 122 mmHg BP Diastolic 78 mmHg Height 61 inches 5'1" Weight 171.00 lb BMI (Body Mass Index) 32.3 kg/m2 Last Menstrual Period 7894928 2 Parity 1 04/20/2014 7:38am BP Systolic 112 mmHg BP Diastolic 60 mmHg Height 61 inches 5'1" Weight 171.00 lb BMI (Body Mass Index) 32.3 kg/m2 Last Menstrual Period 4526057 2 Parity 1 04/14/2014 11:10am BP Systolic 128 mmHg BP Diastolic 70 mmHg Body Temperature 98.5 F Height 61 inches 5'1" Weight 170.00 lb BMI (Body Mass Index) 32.1 kg/m2 Last Menstrual Period 1142938 2 Parity 1 03/31/2014 8:41am BP Systolic 128 mmHg BP Diastolic 78 mmHg Body Temperature 98.7 F Height 61 inches 5'1" Weight 174.00 lb BMI (Body Mass Index) 32.9 kg/m2 Last Menstrual Period 3810418 2 Parity 1 03/17/2014 8:46am BP Systolic 118 mmHg BP Diastolic 78 mmHg Body Temperature 98.2 F Heart Rate 80 /min Respiratory Rate 20 /min Height 61 inches 5'1" Weight 185.00 lb BMI (Body Mass Index) 35.0 kg/m2 Last Menstrual Period 6479267 2 Parity 0 08/26/2013 1:37pm BP Systolic 118 mmHg BP Diastolic 68 mmHg Weight 158.00 lb Last Menstrual Period 8106599 2 Parity 0 07/29/2013 10:05am BP Systolic 110 mmHg BP Diastolic 66 mmHg Weight 158.00 lb Last Menstrual Period 3137816 04/28/2013 7:59am BP Systolic 98 mmHg BP Diastolic 64 mmHg Height 60.5 inches 5'0.50" Weight 154.00 lb BMI (Body Mass Index) 29.6 kg/m2 1 Parity 0 Results Test Date Facility Test Result H/L Range Note Laboratory test 08/12/2018 [facility] Gardnerella/Yeast <pending > [place] [address] : Vaginal Dna [phone] Laboratory test 04/30/2018 [facility] Progesterone 8.0 ng/mL 1 [place] [address] [phone] MTHFR 04/30/2018 [facility] MTHFR C677[place] [address] Mutation [phone] MTHFR Interpretation See Comment 2 MTHFR Reviewed By See Comment 3 MTHFR [id number] Mutation Heterozygous Abnormal Negative Mthac Interpretation See Comment 4 Mthac Reviewed By See Comment 5 Laboratory test 11/18/2017 [facility] TSH 1.87 mcIU/mL N 0.34- 5.60 6 [place] [address] [phone] T4 Free 0.76 ng/dL N 0.61-1.12 7 Laboratory test 11/18/2017 [facility] Cytology SEE RESULT 8 [place] [address] BELOW [phone] Urine Culture And 04/21/2017 [facility] Urine Culture SEE RESULT 9 Sensitivities [place] [address] BELOW [phone] Laboratory test 11/13/2016 [facility] Cytology SEE RESULT 10 finding [place] [address] BELOW [phone] Laboratory test 03/29/2016 [facility] Surgical SEE RESULT 11 [place] [address] Pathology BELOW [phone] Laboratory test 03/14/2016 [facility] Group B Strep SEE RESULT 12, 13 [place] [address] Culture Screen BELOW [phone] Urinalysis Profile 02/29/2016 [facility] Urine Color Yellow N [place] [address] [phone] Urine Appearance Clear N Urine Specific [place] 1.004 Low 1.010-1.030 Urine pH 7.0 N 5-9 Urine Urobilinogen Negative N Negative Urine Ketones Negative N Negative Urine Protein Negative N Negative Urine Leukocytes Trace Abnormal Negative Urine Blood 3+ Abnormal Negative Urine Nitrite Negative N Negative Urine Bilirubin Negative N Negative Urine Glucose Negative N Negative Urine White Blood Cell Trace(0-5/hpf) N Absent Urine Red Blood Cell 3+(>10/hpf) Abnormal Absent Urine Bacteria 1+ Abnormal Absent Urine Squamous Epithelial Cell Present Abnormal Absent Urine Culture And 02/29/2016 [facility] Urine Culture SEE RESULT 14 Sensitivities [place] [address] BELOW [phone] Glucose Tolerance 01/11/2016 [facility] GTT 3HR (SEE NOTE) Low 15 3[place] [address] Gestational [phone] Laboratory test 01/09/2016 [facility] Glucose 1 HR 165 mg/dL High 70-1 16 [place] [address] Post Prandial 60 [phone] CBC With No Diff 01/09/2016 [facility] White Blood 9.4 N 3.5- [place] [address] Count 10^3/uL 10.8 [phone] Red Blood Count 4.26 10^6/uL N 4.0-5.4 Hemoglobin 12.7 g/dL N 12.0-16.0 Hematocrit 36 % N 35-47 Mean Corpuscular Volume 85 fL N 80-97 Mean Corpuscular Hemoglobin 30 pg N 27-31 Mean Corpuscular HGB Conc 35 g/dL N 31-36 Red Cell Distribution Width 14 % N 10.5-15 Platelet Count 292 10^3/uL N 150-450 Mean Platelet Volume 8 um3 N 7.4-10.4 Urine Culture And 12/18/2015 [facility] Urine Culture SEE RESULT 17 [place] [address] BELOW [phone] Urine Culture And 10/31/2015 [facility] Urine Culture SEE RESULT 18 [place] [address] BELOW [phone] Sequential 09/25/2015 [facility] Interpretation SEE BELOW 19 Integrated SCRN 1 [place] Age Risk Down Syndrome 1:690 ANITHA Down Syndrome Risk IN PROCESS <1:50 ANITHA Trisomy 18 Risk IN PROCESS <1:100 Calculated Gestational Age 12.7 20 Lily-A 380 ng/mL Lily-A Mom 0.62 HCG,Serum 75.9 IU/mL HCG Mom 0.98 NT Mom 1.28 21 Referring Physician Name BEBA 22 Referring Physician Phone [phone] Referring Physician Npi [id number] Date Of 1990 25 Collection Date 09/25/2015 26 Maternal Weight 168 lbs 27 Est'd Date Of Delivery 04/02/2016 28 MARCIA Determined By U 29 Mother's Ethnic Origin C 30 Number Of Fetuses 1 31 Insulin Depend Diabetic N 32 Repeat Specimen N 33 HX Of Neural Tube Defects N 34 Prev Down Synd N 35 Donor Egg N 36 Donor Age:Egg Retrieval NOT GIVEN 37 Ultrasound Date 09/25/2015 38 Supervisor Insulation's Name REGGIE 39 NTQR Supervisor Insulation Id# [id number] NTQR Location Id# [id number] NTQR Reading Phys Id# [id number] FMF Supervisor Insulation Id# NOT GIVEN 43 [place] Rump Length 66 mm 44 Nuchal Translucency 1.9 mm 45 Nasal Bone NOT GIVEN 46 If Twins NOT GIVEN 47 Twin B CRL NOT GIVEN mm 48 Twin B NT NOT GIVEN mm 49 Twin B Nasal Bone NOT GIVEN 50 HIV 1/2 AB 08/25/2015 [facility] HIV 1 2 Nonreactive N Nonreactive 51 [place] [address] Antibody [phone] Lead 08/25/2015 [facility] Lead <1.0 g/dL N 0.0-9.9 [place] [address] [phone] PNL 08/25/2015 [facility] Rubella Immune IU/mL [place] [address] Screen [phone] Hemoglobin A1c 4.8 % N Less than 6.0 52 Hepatitis B Surface Ag Nonreactive N Nonreactive 53 RPR 08/25/2015 [facility] Syphilis [place] [address] [phone] Pediatric/Maternal YES N RPR Nonreactive N Nonreactive RPR Titer TNP N Laboratory test 08/25/2015 [facility] Cytology SEE RESULT 54 [place] [address] BELOW [phone] GC/Chlamydia 08/25/2015 [facility] Chlamydia Negative [place] [address] trachomatis Rna [phone] Neisseria gonorrhoeae (GC) Rna Negative N Negative CBC With No 08/25/2015 [facility] White Blood 9.9 10^3/uL N 3.5-10.8 [place] [address] Count [phone] Red Blood Count 4.46 10^6/uL N 4.0-5.4 Hemoglobin 12.9 g/dL N 12.0-16.0 Hematocrit 38 % N 35-47 Mean Corpuscular Volume 84 fL N 80-97 Mean Corpuscular Hemoglobin 29 pg N 27-31 Mean Corpuscular HGB Conc 35 g/dL N 31-36 Red Cell Distribution Width 13 % N 10.5-15 Platelet Count 343 10^3/uL N 150-450 Mean Platelet Volume 8 um3 N 7.4-10.4 Urine Culture And 08/25/2015 [facility] Urine Culture SEE RESULT 55 [place] [address] BELOW [phone] Parvovirus B19 08/25/2015 [facility] Parvovirus 1.96 index Abnormal <0. 56 I[place] & [place] [address] (B19) IgG 90 [phone] Antibody Parvovirus (B19) IgM Antibody 0.13 index N <0.90 57 Parvovirus Interpretation See Comment N 58 Type And Screen 08/25/2015 [facility] Patient [place] [address] [phone] Antibody Screen NEGATIVE N Laboratory test 08/07/2015 [facility] HCG 3825.00 N 59 [place] [address] mIU/mL [phone] Laboratory test 08/04/2015 [facility] HCG 1729.00 N 60 [place] [address] mIU/mL [phone] CBC Auto Diff 03/23/2014 [facility] White Blood 8.5 10^3/uL N 4.8-1 [place] [address] Count 0.8 [phone] Red Blood Count 4.56 10^6/uL N 4.0-5.4 Hemoglobin 14.1 g/dL N 12.0-16.0 Hematocrit 40 % N 35-47 Mean Corpuscular Volume 88 fL N 80-97 Mean Corpuscular Hemoglobin 31 pg N 27-31 Mean Corpuscular HGB Conc 35 g/dL N 31-36 Red Cell Distribution Width 13 % N 10.5-15 Platelet Count 275 10^3/uL N 150-450 Mean Platelet Volume 9 um3 N 7.4-10.4 Abs Neutrophils 5.4 10^3/uL N 1.5-7.7 Abs Lymphocytes 2.4 10^3/uL N 1.0-4.8 Abs Monocytes 0.6 10^3/uL N 0-0.8 Abs Eosinophils 0.1 10^3/uL N 0-0.6 Abs Basophils 0.1 10^3/uL N 0-0.2 Abs Nucleated RBC 0.01 10^3/uL N Granulocyte % 63.6 % N 38-83 Lymphocyte % 28.0 % N 25-47 Monocyte % 6.8 % N 1-9 Eosinophil % 0.7 % N 0-6 Basophil % 0.9 % N 0-2 Nucleated Red Blood Cells % 0.1 N Type And Screen 03/23/2014 [facility] Patient [place] [address] [phone] Antibody Screen NEGATIVE N Laboratory 02/25/2014 [facility] Rubella Nonimmune [place] [address] Screen IU/mL [phone] Laboratory 02/25/2014 [facility] Group B (SEE NOTE) 61 test [place] Strep [phone] Culture Screen Laboratory 12/29/2013 [facility] Glucose 1 HR 128 mg/dL N 70- 160 test [place] [address] Post [phone] Prandial CBC Auto Diff 12/29/2013 [facility] White Blood 13.3 10^3/uL High 4.8-10.8 [place] [address] Count [phone] Red Blood Count 4.18 10^6/uL N 4.0-5.4 Hemoglobin 12.8 g/dL N 12.0-16.0 Hematocrit 37 % N 35-47 Mean Corpuscular Volume 87 fL N 80-97 Mean Corpuscular Hemoglobin 31 pg N 27-31 Mean Corpuscular HGB Conc 35 g/dL N 31-36 Red Cell Distribution Width 13 % N 10.5-15 Platelet Count 298 10^3/uL N 150-450 Mean Platelet Volume 8 um3 N 7.4-10.4 Abs Neutrophils 9.7 10^3/uL High 1.5-7.7 Abs Lymphocytes 2.7 10^3/uL N 1.0-4.8 Abs Monocytes 0.8 10^3/uL N 0-0.8 Abs Eosinophils 0.2 10^3/uL N 0-0.6 Abs Basophils 0 10^3/uL N 0-0.2 Abs Nucleated RBC 0.01 10^3/uL N Manual Differential 12/29/2013 [facility] Neutrophil % 71 % N 38-83 [place] [address] [phone] Lymphocytes % 22 % Low 25-47 Eosinophils % 2 % N 0-6 Reactive Lymph % 5 % N 0-6 RBC Morphology Normal N Normal Urine Culture And 12/27/2013 [facility] Urine Culture (SEE NOTE ) 62 [place] [address] [phone] GC/Chlamydia Dna 10/14/2013 [facility] GC/Chlamydia Rna (SEE NOTE) 63 Pro[address] [place], [place] [address]371 [phone] Sequential 10/14/2013 [facility] Interpretation SEE BELOW 64 Integreated SCRN 2 [place] Risk For Ontd <1:5000 Age Risk Down Syndrome 1:1000 ANITHA Down Syndrome Risk <1:5000 <1:270 ANITHA Trisomy 18 Risk <1:5000 <1:100 Calculated Gestational Age 15.9 65 Afp,Serum 22.9 NG/ML Afp Mom 0.65 66 HCG,Serum 13.8 IU/mL HCG Mom 0.51 Estriol,Free 0.57 NG/ML Estriol Mom 1.08 Inhibin A,Dimeric 150 pg/mL Inhibin A Mom 0.87 Lily-A 776 NG/ML Lily-A Mom 1.27 NT Mom 1.02 67 Referring Physician Name JASSON MAR Referring Physician Phone [phone] Referring Physician Npi [id number] Specimen # From Part 1 [id number] Date Of 1990 Collection Date 10/14/2013 Maternal Weight 158 LBS Est'd Date Of Delivery 03/30/2014 Nuchal Translucency 1.3 MM [place] Rump Length 53 MM Ultrasound Date 09/15/2013 Nasal Bone NOT GIVEN Mother's Ethnic Origin Insulin Depend Diabetic NO Repeat Specimen NO Number Of Fetuses 1 HX Of Neural Tube Defects NO Twin B Nasal Bone NOT GIVEN Sequential Integrated SCRN 1 [place] 09/15/2013 [facility] Interpretation SEE BELOW 68 Age Risk Down Syndrome 1:760 ANITHA Down Syndrome Risk IN PROCESS <1:50 ANITHA Trisomy 18 Risk IN PROCESS <1:100 Calculated Gestational Age 11.7 69 Liyl-A 776 NG/ML Lily-A Mom 1.27 HCG,Serum 54.0 IU/mL HCG Mom 0.90 NT Mom 1.02 70 Referring Physician Name BEBA Referring Physician Referring Physician Npi [id number] Date Of 1990 Collection Date 09/15/2013 Maternal Weight 158 LBS Est'd Date Of Delivery 03/30/2014 MARCIA Determined By U Mother's Ethnic Origin Number Of Fetuses 1 Insulin Depend Diabetic NO Repeat Specimen NO HX Of Neural Tube Defects NO Brief History (NTD) NOT GIVEN Prev Down Synd NO Donor Egg NO Donor Age:Egg Retrieval NOT GIVEN Ultrasound Date 09/15/2013 Supervisor Insulation's Name REGGIE NTQR Supervisor Insulation Id# [id number] NTQR Location Id# [id number] NTQR Reading Phys Id# [id number] [facility] Supervisor Insulation Id# NOT GIVEN [place] Rump Length 53 MM Nuchal Translucency 1.3 MM Nasal Bone NOT GIVEN If Twins NOT GIVEN Twin B CRL NOT GIVEN MM Twin B NT NOT GIVEN MM Twin B Nasal Bone NOT GIVEN Cystic Fibrosis Carrier ([place]) 09/15/2013 [facility] Reported Ethnicity see note 71 CF Result see note 72 Interpretation see note 73 Mutations/Polymorphisms see note 74 Method see note 75 Reviewer see note 76 CBC Auto Diff 09/15/2013 [facility] White Blood 10.7 10^3/uL 4.8-10.8 [place] [address] Count [phone] Red Blood Count 4.30 10^6/uL 4.0-5.4 Hemoglobin 12.9 g/dL 12.0-16.0 Hematocrit 36 % 35-47 Mean Corpuscular Volume 84 fL 80-97 Mean Corpuscular Hemoglobin 30 pg 27-31 Mean Corpuscular HGB Conc 36 g/dL 31-36 Red Cell Distribution Width 12 % 10.5-15 Platelet Count 344 10^3/uL 150-450 Mean Platelet Volume 8 um3 7.4-10.4 Abs Neutrophils 7.5 10^3/uL 1.5-7.7 Abs Lymphocytes 2.4 10^3/uL 1.0-4.8 Abs Monocytes 0.6 10^3/uL 0-0.8 Abs Eosinophils 0.1 10^3/uL 0-0.6 Abs Basophils 0.1 10^3/uL 0-0.2 Abs Nucleated RBC 0 10^3/uL Granulocyte % 70.2 % 38-83 Lymphocyte % 22.9 % Low 25-47 Monocyte % 5.7 % 1-9 Eosinophil % 0.7 % 0-6 Basophil % 0.5 % 0-2 Nucleated Red Blood Cells % 0 HIV 1/2 AB 09/15/2013 [facility] HIV 1 2 Nonreactive Nonreactive [address] [place] [address] Antibody [phone] Type And 09/15/2013 [facility] [place] [address] Blood Type [phone] Antibody Screen NEGATIVE RPR 09/15/2013 [facility] Syphilis [place] [address] [phone] RPR Nonreactive Nonreactive RPR Titer TNP Pediatric/Maternal YES PNL No 09/15/2013 [facility] Rubella Equivocal IU/[place] [address] Screen [phone] Hemoglobin A1c 4.6 % Less than 6.0 78 Hepatitis B Surface Antigen Nonreactive Nonreactive 79 Urine Culture And 08/26/2013 [facility] Urine Culture (SEE NOTE ) 80 [place] [address] [phone] 1 Female reference ranges for Progesterone: Follicular phase.......0.3 - 1.5 ng/ml Mid-luteal phase.......5.2 - 18.5 ng/ml Postmenopausal.........< 0.8 ng/ml 1st trimester.........4.7 - 50.0 ng/ml 2nd trimester.........19.4 - 45.3 ng/ml 2 This individual DOES NOT have the Methylenetetrahydrofolate reductase (MTHFR) C677T gene mutation. In the absence of the MTHFR C677T gene mutation, other causes of hyperhomocysteinemia should be considered (renal failure, zinc deficiency, leukemia, psoriasis, or antifolate drug therapy). If clinically indicated, suggest Coagulation Consultation 39980 (Thrombophilia Profile) to complete the evaluation for an inherited or acquired thrombosing disorder (i.e., thrombophilia). Consider genetic consultation and counseling of potentially affected family members regarding laboratory testing. ADDITIONAL INFORMATION This test is a direct mutation analysis using PCR amplification, signal generation and release by cleavage of sequence specific alleles ([employer], [employer], [place], [place]). This test has been modified from the snow plow tractor operator's instructions. Its performance characteristics were determined by [facility] in a manner consistent with CLIA requirements. This test has not been cleared or approved by the U.S. Food and Drug Administration. 3 RESULT: Eavns Lacy M.D., Ph.D. 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 MTHAC N7854G carriers are not at increased risk for thrombosis in the absence of hyperhomocysteinemia. In the absence of alternative causes, heterozygous carriers of MTHAC U7885A are not at increased risk for hyperhomocysteinemia. Hyperhomocysteinemia is a relatively weak risk factor for both venous thromboembolism and arterial thrombosis. The MTHAC S7079G gene mutation test does not detect other causes of hyperhomocysteinemia due to acquired disorders (renal failure, zinc deficiency, leukemia, psoriasis, or antifolate drug therapy). If clinically indicated, suggest Coagulation Consultation 18774 (Thrombophila Profile) to complete the evaluation for an inherited or acquired thrombosing disorder (i.e., thrombophilia). Consider genetic consultation and counseling of potentially affected family members regarding laboratory testing. ADDITIONAL INFORMATION This test is a direct mutation analysis using PCR amplification, signal generation and release by cleavage of sequence specific alleles ([employer], [employer], [place], [place]). This test has been modified from the snow plow tractor operator's instructions. Its performance characteristics were determined by [facility] in a manner consistent with CLIA requirements. This test has not been cleared or approved by the U.S. Food and Drug Administration. 5 RESULT: Evans Lacy M.D., Ph.D. This test is a direct mutation analysis using PCR amplification, signal generation and release by cleavage of sequence specific alleles ([employer], [employer], [place], [place]). This test has been modified from the snow plow tractor operator's instructions. Its performance characteristics were determined by [facility] in a manner consistent with CLIA requirements. This test has not been cleared or approved by the U.S. Food and Drug Administration. Test Performed by: [facility] - [address] [address] 6 [id number] SEE RESULT BELOW Name: BAKARI LU : [address]: Arlene Carter MD Acct: [id number] Unit: [id number] AGE: 27 Location: [facility] Re11/18/17 SEX: F Status: REG REF SPEC: [id number] EMILY: 11/18/17-[address] [facility] [address]: Arlene Carter MD REQ: [id number] RECD: 11/18/17-152 STATUS: TEE STORY DR: Lesa Rodriguez MD _ ORDERED: TP IMAGE ANALYS COMMENTS: [id number] Negative for Intraepithelial lesion or Malignancy A. [...] was evaluated with the assistance of the Pet [employer] Quotes Test Imaging System. Due to cytologic findings at the field merchandiser microscope, comprehensive manual rescreening by a Patient Manager may be required. The Pap Smear is [...] years. END OF REPORT DEPARTMENT OF PATHOLOGY, [address] [place] [address] Sukhdev Young M.D. Director [facility] # [id number] 9 SEE RESULT BELOW Name: BAKARI UL : [address]: Jasson Mar MD Acct: [id number] Unit: [id number] AGE: 26 Location: [facility] Re04/21/17 SEX: F Status: REG REF SPEC: [id number] EMILY: 04/21/17-[address] [facility] [address]: Jasson Mar MD REQ: [id number] RECD: 04/22/17 STATUS: COMP _ SOURCE: URINE SPDESC: ORDERED: Urine Culture COMMENTS: [id number] Urine Source: Random Procedure Result Reported Site Urine Culture Final 04/23/17- 1349 ML No growth of clinically significant organisms * ML - MAIN LAB ([facility]) . END OF REPORT * ML=Testing performed at Main Lab DEPARTMENT OF PATHOLOGY, [address] [place] [address] Sukhdev Young M.D. Director [facility] # [id number] 10 SEE RESULT BELOW Name: BAKARI LU : [address]: Arlene Carter MD Acct: [id number] Unit: [id number] AGE: 26 Location: [facility] Re11/13/16 SEX: F Status: REG REF SPEC: [id number] EMILY: 11/13/16-[address] [facility] [address]: Arlene Carter MD REQ: [id number] RECD: 11/13/160629 STATUS: SOUT _ ORDERED: TP IMAGE ANAL COMMENTS: [id number] FINAL DIAGNOSIS Negative for Intraepithelial lesion or Malignancy A. Ectocervical/Endocervical Specimen Adequacy: Satisfactory of evaluation Transformation zone component not identified Patient Information: HPV: Thin Layer Pap Test w/reflex to high risk HPV RNA testing when ASCUS Actual Specimen Date: 11/13/16 Last Menstrual Date: 09/09/16 Date of Last Specimen: 08/25/15 ?: N Post Menopausal?: N Hysterectomy?: N Signed (signature on file) FARHAT Ambrose(ASCP) 11/14 1602 This Pap test was evaluated with the assistance of the GT Channel[employer] Test Imaging System. Due to cytologic findings at the field merchandiser microscope, comprehensive manual rescreening by a Patient Manager may be required. The Pap Smear is [...] evaluated every 1-3 years. END OF REPORT * ML=Testing performed at Main Lab DEPARTMENT OF PATHOLOGY, [address] [place] [address] Sukhdev Young M.D. Director [facility] # [id number] 11 SEE RESULT BELOW Name: BAKARI LU : [address]: Arlene Carter MD Acct: [id number] Unit: [id number] AGE: 25 Location: [facility] 117-01 Re03/29/16 Dis: 04/01/16 SEX: F Status: DIS IN SPEC: [id number] EMILY: 03/29/16- SUBM DR: Arlene Carter MD REQ: [id number] RECD: 03/29/16646 STATUS: SOUT _ ORDERED: LEVEL II FINAL DIAGNOSIS Fallopian tubes, bilateral salpingectomies: -- Completely transected bilateral fimbriated fallopian tubes with no significant pathologic abnormalities. PRE-OPERATIVE DIAGNOSIS Repeat with bilateral tubal ligation GROSS DESCRIPTION The specimen is received in formalin labeled, Left and Right Fallopian Tubes , and consists of two fimbriated fallopian tubes averaging 2.8 x 0.7 cm. The serosa is smooth to wrinkled purple-feliz with rare focal paratubal cysts measuring up to 0.6 cm. The cut surface is unremarkable. The specimen is differentially inked and union contract representative sections are submitted in one cassette. Signed (signature on file) Dariela Downey MD 05/08 1144 END OF REPORT * ML=Testing performed at Main Lab DEPARTMENT OF PATHOLOGY, [address] [place] [address] Sukhdev Young M.D. Director [facility] # [id number] 13 SEE RESULT BELOW Name: BAKARI LU : [address]: Janett Soni MD Acct: [id number] Unit: [id number] AGE: 25 Location: [facility] Re03/14/16 SEX: F Status: REG REF SPEC: [id number] EMILY: 03/14/16-[address]: Janett Soni MD REQ: [id number] RECD: 03/15/16-2823 STATUS: COMP _ SOURCE: CER/VAG/RE SPDESC: ORDERED: Grp B Strp Scrn COMMENTS: [id number] QUERIES: Is patient penicillin allergic and/or sensitivities needed? N Provider Requisition # [id number]_ Procedure Result Reported Site Group B Strep Culture Screen Final 03/17/16- 1105 ML Group B Strep Screen Negative * ML - MAIN LAB ([facility]) . END OF REPORT * ML=Testing performed at Main Lab DEPARTMENT OF PATHOLOGY, [address] [place] [address] Sukhdev Young M.D. Director [facility] # [id number] 14 SEE RESULT BELOW Name: BAKARI LU : [address]: Jasson Mar MD Acct: [id number] Unit: [id number] AGE: 25 Location: [facility] Re02/29/16 SEX: F Status: REG REF SPEC: [id number] EMILY: 02/29/16-[address] [facility] [address]: Jasson Mar MD REQ: [id number] RECD: 02/29/16-1256 STATUS: COMP OTHR DR: Lesa Rodriguez MD _ SOURCE: URINE SPDESC: ORDERED: Urine Culture Procedure Result Reported Site Urine Culture Final 03/01/16- 1207 ML No Growth (<1,000 CFU/mL) * ML - MAIN LAB ([facility]) . END OF REPORT * ML=Testing performed at Main Lab DEPARTMENT OF PATHOLOGY, [address] [place] [address] Sukhdev Young M.D. Director [facility] # [id number] 15 GLU Fast 65 L Col: 01/11/16 1105 GLU 1HR 138 Col: 01/11/16 1205 GLU 2HR 126 Col: 01/11/16 1305 GLU 3HR 129 Col: 01/11/16 1405 GLU Interp Col: 01/11/16 1105 GTT normal ranges for obstetrics per the [place] [employer] (ACOG).Based on 100 gm glucose load: Fasting <95 mg/dl 1hr <180 mg/dl 2hr <155 mg/dl 3hr <140 mg/dl 16 [id number] 17 SEE RESULT BELOW Name: BAKARI LU : [address]: Zaida REYNA Acct: [id number] Unit: [id number] AGE: 25 Location: [facility] Re12/18/15 SEX: F Status: REG REF SPEC: [id number] EMILY: 12/18/15-[address]: Zaida REYNA REQ: [id number] RECD: 12/18/15 STATUS: COMP _ SOURCE: URINE SPDESC: ORDERED: Urine Culture COMMENTS: [id number] Procedure Result Reported Site Urine Culture Final 12/19/15- 1559 ML No growth of clinically significant organisms * ML - MAIN LAB ([facility]) . END OF REPORT * ML=Testing performed at Main Lab DEPARTMENT OF PATHOLOGY, [address] [place] [address] Sukhdev Young M.D. Director [facility] # [id number] 18 SEE RESULT BELOW Name: BAKARI LU Eriberto : [address]: María Elena Miranda CNP Acct: [id number] Unit: [id number] AGE: 25 Location: [facility] Re10/31/15 SEX: F Status: REG REF SPEC: [id number] EMILY: 10/31/[address]: María Elena Miranda CNP REQ: [id number] RECD: 10/31/15 STATUS: COMP _ SOURCE: URINE SPDESC: ORDERED: Urine Culture COMMENTS: [id number] Procedure Result Reported Site Urine Culture Final 11/01/15- 1324 ML No Growth (<1,000 CFU/mL) * ML - MAIN LAB ([facility]) . END OF REPORT * ML=Testing performed at Main Lab DEPARTMENT OF PATHOLOGY, [address] [place] [address] Sukhdev Young M.D. Director [facility] # [id number] 19 This patient's risk does not exceed the first trimester cut-off for Down syndrome or trisomy 18. The integrated screen calculation is awaiting the second trimester sample. NT WAS USED IN THE RISK CALCULATIONS. Thank you for submitting this patient's Part 1 specimen. These first trimester values will be incorporated with the second trimester values as part of the integrated testing process. Please submit the Part 2 specimen between 10/11/2015-12/05/2015 (15.0 and 22.9 weeks gestation) with 10/11/2015-10/24/2015 (15.0 - 16.9 weeks gestation) being optimal. When submitting Part 2, please include the following Specimen # from Part 1: [id number] 20 [place] rump length (CRL) was used to calculate gestational age. MARCIA, if provided, was not used for gestational age dating. 21 Interpretation reviewed by: Jacquelyn Gomez, Ph.D., [facility]. This is a screening test, not a diagnostic test. This risk assessment is based on demographic data provided by the ordering physician. Please notify the laboratory promptly if any data are incorrect. If you have questions concerning this report: For clinical consultation, call ; For technical questions, call ext [phone]; For recalculations, fax to . This test was developed and its analytical performance characteristics have been determined by [facility]. It has not been cleared or approved by FDA. This assay has been validated pursuant to the CLIA regulations and is used for clinical purposes. For additional information, please refer to http://education.Teal Orbit.MobilyTrip/faq/FAQ89 (This link is being provided for informational/educational purposes only.) 22 For additional information, please refer to http://RedHelper/faq/FAQ89 (This link is being provided for informational/educational purposes only.) 23 For additional information, please refer to http://RedHelper/faq/FAQ89 (This link is being provided for informational/educational purposes only.) 24 For additional information, please refer to http://RedHelper/faq/FAQ89 (This link is being provided for informational/educational purposes only.) 25 For additional information, please refer to http://RedHelper/faq/FAQ89 (This link is being provided for informational/educational purposes only.) 26 For additional information, please refer to http://RedHelper/faq/FAQ89 (This link is being provided for informational/educational purposes only.) 27 For additional information, please refer to http://RedHelper/faq/FAQ89 (This link is being provided for informational/educational purposes only.) 28 For additional information, please refer to http://RedHelper/faq/FAQ89 (This link is being provided for informational/educational purposes only.) 29 For additional information, please refer to http://RedHelper/faq/FAQ89 (This link is being provided for informational/educational purposes only.) 30 For additional information, please refer to http://RedHelper/faq/FAQ89 (This link is being provided for informational/educational purposes only.) 31 For additional information, please refer to http://RedHelper/faq/FAQ89 (This link is being provided for informational/educational purposes only.) 32 For additional information, please refer to http://RedHelper/faq/FAQ89 (This link is being provided for informational/educational purposes only.) 33 For additional information, please refer to http://RedHelper/faq/FAQ89 (This link is being provided for informational/educational purposes only.) 34 For additional information, please refer to http://RedHelper/faq/FAQ89 (This link is being provided for informational/educational purposes only.) 35 For additional information, please refer to http://RedHelper/faq/FAQ89 (This link is being provided for informational/educational purposes only.) 36 For additional information, please refer to http://RedHelper/faq/FAQ89 (This link is being provided for informational/educational purposes only.) 37 For additional information, please refer to http://RedHelper/faq/FAQ89 (This link is being provided for informational/educational purposes only.) 38 For additional information, please refer to http://RedHelper/faq/FAQ89 (This link is being provided for informational/educational purposes only.) 39 For additional information, please refer to http://RedHelper/faq/FAQ89 (This link is being provided for informational/educational purposes only.) 40 For additional information, please refer to http://RedHelper/faq/FAQ89 (This link is being provided for informational/educational purposes only.) 41 For additional information, please refer to http://RedHelper/faq/FAQ89 (This link is being provided for informational/educational purposes only.) 42 For additional information, please refer to http://RedHelper/faq/FAQ89 (This link is being provided for informational/educational purposes only.) 43 For additional information, please refer to http://RedHelper/faq/FAQ89 (This link is being provided for informational/educational purposes only.) 44 For additional information, please refer to http://RedHelper/faq/FAQ89 (This link is being provided for informational/educational purposes only.) 45 For additional information, please refer to http://RedHelper/faq/FAQ89 (This link is being provided for informational/educational purposes only.) 46 For additional information, please refer to http://Lulu*s Fashion Lounge.Apptimize/faq/FAQ89 (This link is being provided for informational/educational purposes only.) 47 For additional information, please refer to http://RedHelper/faq/FAQ89 (This link is being provided for informational/educational purposes only.) 48 For additional information, please refer to http://Lulu*s Fashion Lounge.Apptimize/faq/FAQ89 (This link is being provided for informational/educational purposes only.) 49 For additional information, please refer to http://Lulu*s Fashion Lounge.Apptimize/faq/FAQ89 (This link is being provided for informational/educational purposes only.) 50 For additional information, please refer to http://RedHelper/faq/FAQ89 (This link is being provided for informational/educational purposes only.) 51 It is recognized that currently available assays for the detection of antibodies to HIV-1 and/or HIV-2 may not detect all infected individuals. HIV antibodies may be undetectable in some stages of the infection and in some clinical conditions. The performance of this assay has not been established for populations of infants or children. Assayed by Chemiluminescence Microparticle Immunoassay on the Siemens Advia Centaur CP. Values obtained with different methods or kits cannot be used interchangeably.The diagnostic specificity of the ADVIA Centaur 1/O/2 Enhanced assay in the low risk population was 99.90% (6052/6058) with a 95% confidence interval of 99.78 to 99.96%. 52 Therapeutic target for the treatment of diabetes Mellitus patients is <7% HBA1C, and in selective patients <6.0%.Please refer to [place] [employer] Diabetic care guidelines for further information. 53 , Pediatric (<=12yrs) or Maternal?: YES 54 SEE RESULT BELOW Name: BAKARI LU Eriberto : [address]: Carlos Silverman [facility] Acct: [id number] Unit: [id number] AGE: 25 Location: [facility] Re08/25/15 SEX: F Status: REG REF SPEC: [id number] EMILY: 08/25/15-[address]: Carlos Silverman [facility] REQ: [id number] RECD: 08/28/15 STATUS: SOUT _ ORDERED: IMAGE ANALYSIS FINAL DIAGNOSIS Negative for Intraepithelial lesion or Malignancy A. Ectocervical/Endocervical Specimen Adequacy: Satisfactory of evaluation Transformation zone component identified Patient Information: HPV: Thin Layer Pap Test w/reflex to high risk HPV RNA testing when ASCUS Actual Specimen Date: 08/25/15 Last Menstrual Date: 06/21/15 Spec Date if unknown: unknown ?: Y Signed (signature on file) FARHAT Ambrose(ASCP) 08/28 1253 This Pap test was evaluated with the assistance of the ThinPrep Test Imaging System. Due to cytologic findings at the field merchandiser microscope, comprehensive manual rescreening by a Patient Manager may be required. The Pap Smear is [...] evaluated every 1-3 years. END OF REPORT * ML=Testing performed at Main Lab DEPARTMENT OF PATHOLOGY, [address] [place] [address] Sukhdev Young M.D. Director [facility] # [id number] 55 SEE RESULT BELOW Name: BAKARI UL : [address]: Carlos Silverman [facility] [place] Acct: [id number] Unit: [id number] AGE: 25 Location: [facility] Re08/25/15 SEX: F Status: REG REF SPEC: [id number] EMILY: 08/25/15-[address]: Carlos RAMOS REQ: [id number] RECD: 08/25/15-1615 STATUS: COMP _ SOURCE: URINE SPDESC: ORDERED: Urine Culture Procedure Result Reported Site Urine Culture Final 08/27/15- 912 ML Organism 1 NORMAL YENY [place] Count 50-75,000 (Many) CFU/ML * ML - MAIN LAB ([facility]) . END OF REPORT * ML=Testing performed at Main Lab DEPARTMENT OF PATHOLOGY, [address] [place] [address] Sukhdev Young M.D. Director [facility] # [id number] 56 Positive 57 Negative 58 RESULT: Results suggest past infection. Test Performed by: [place] [address] Radio News Writer: Gordon Grewal II, M.D., Ph.D. 59 <5.0 Negative 5.0 - 25.0 Indeterminate (Repeat testing recommended after 72 hours) >25.0 Positive Perimenopausal women can display HCG levels of up to 20 mIU/mL 60 <5.0 Negative 5.0 - 25.0 Indeterminate (Repeat testing recommended after 72 hours) >25.0 Positive Perimenopausal women can display HCG levels of up to 20 mIU/mL 61 RUN DATE: 03/02/14 [facility] LAB LIVE PAGE 1 RUN TIME: [address] [place] [address] Specimen Inquiry Name: ALYVERONIQUEE Eriberto : [address]: Chen Fontaine MD Acct: [id number] Unit: [id number] AGE: 23 Location: [facility] Re02/25/14 SEX: F Status: REG REF SPEC: [id number] EMILY: 02/25/14-[address] [facility] [address]: Chen Fontaine MD REQ: [id number] RECD: 02/28/14 STATUS: COMP _ SOURCE: CER/VAG/RE SPDESC: ORDERED: Grp B Strp Scrn QUERIES: Is Patient Penicillin Allergic? N Medent Number [id number] Procedure Result Verified Site Group B Strep Culture Screen Final 03/02/14- 0909 ML Group B Strep Screen Negative END OF REPORT * ML=Testing performed at Main Lab DEPARTMENT OF PATHOLOGY, [facility] [place] [address] Sukhdev Young M.D. Director [facility] # [id number] 62 RUN DATE: 12/29/13 [facility] LAB LIVE PAGE 1 RUN TIME: 2817 [facility] [place], [place] [address] Specimen Inquiry Name: BAKARI LU : [address]: María Elena Miranda CNP Acct: [id number] Unit: [id number] AGE: 23 Location: [facility] Re12/27/13 SEX: F Status: REG REF SPEC: [id number] EMILY: 12/27/13-[address] [facility] [address]: María Elena Miranda CNP REQ: [id number] RECD: 12/27/136691 STATUS: COMP _ SOURCE: URINE SPDESC: ORDERED: Urine Culture QUERIES: Medent Number [id number] Procedure Result Verified Site Urine Culture Final 12/29/13- 1137 ML Organism 1 NORMAL YENY [place] Count 10-25,000 (Moderate) CFU/ML END OF REPORT * ML=Testing performed at Main Lab DEPARTMENT OF PATHOLOGY, [facility] [place], [place] [address] Sukhdev Young M.D. Director [facility] # [id number] 63 RUN DATE: 10/19/13 [facility] LAB LIVE PAGE 1 RUN TIME: 1420 [facility] [place], [place] [address] Specimen Inquiry Name: BAKARI LU Eriberto : [address]: Janett Soni MD Acct: [id number] Unit: [id number] AGE: 23 Location: [facility] Re10/14/13 SEX: F Status: REG REF SPEC: [id number] EMILY: 10/14/13-[address]: Janett Soni MD REQ: [id number] RECD: 10/15/13-1041 STATUS: COMP _ SOURCE: URINE SPDESC: ORDERED: BIJU/Chepe RNA QUERIES: Medent Number [id number] Procedure Result Verified Site Chlamydia Trachomatis RNA Final 04/29/14- 1513 ML NEGATIVE for Chlamydia trachomatis rRNA GC (N. gonorrhoeae) RNA Final 10/19/13- 1502 ML NEGATIVE for Neisseria gonorrhoeae rRNA A [...] result may have adverse psychosocial impact, the [facility] recommends retesting by a method using an alternate technology. Therapeutic failure or success cannot be determined with the Aptima Combo 2 Assay since nucleic acid may persist following appropriate antimicrobial therapy. Results from the Aptima Combo 2 Assay should be interpreted in conjunction with other laboratory and clinical data available to the clinican. CONTINUED ON NEXT PAGE * ML=Testing performed at Main Lab DEPARTMENT OF PATHOLOGY, [facility] [place], [place] [address] Sukhdev Young M.D. Director [facility] Permit #[id number] RUN DATE: 10/19/13 [facility] LAB LIVE PAGE 2 RUN TIME: 1512 [facility] [place], [place] [address] Specimen Inquiry Patient: BAKARI LU [id number] (Continued) Specimen: [id number] Collected: 10/14/13 Received: 10/15/13 (Continued) Procedure Result Verified Site GC (N. gonorrhoeae) RNA Final (continued) 10/19/13- 150 Performance characteristics for detecting C. trachomatis and N. gonorrhoeae are derived from high prevalence populations. Positive results in low prevalence populations should be interpreted carefully with the understanding that the likelihood of a false positive may be higher than a true positive. END OF REPORT * ML=Testing performed at Main Lab DEPARTMENT OF PATHOLOGY, [address] [place] [address] Sukhdev Young M.D. Director [facility] Permit #[id number] 64 SCREEN NEGATIVE FOR OPEN NTD, DOWN SYNDROME AND TRISOMY 18. NT WAS USED IN THE RISK CALCULATIONS. 65 [place] rump length (CRL) was used to calculate gestational age. MARCIA, if provided, was not used for gestational age dating. 66 Reference Range: <2.50 IDD <1.90 TWINS <4.00 TWINS IDD <3.50 TRIPLETS <4.50 67 The Sequential Integrated Screen combines LILY-A and hCG with or without a nuchal translucency measurement in the first trimester with AFP, unconjugated estriol, intact hCG and Inhibin A in the second trimester. This provides a useful screening test for detection of open neural tube defects, Down syndrome and Trisomy 18. It should be noted that normal results can never guarantee the of a normal baby and that 2 to 3 percent of newborns have some type of physical or mental defect, many of which are undetectable through any known diagnostic technique. Interpretation reviewed by: Jacquelyn Gomez, Ph.D., [facility]. This is a screening test, not a diagnostic test. This risk assessment is based on demographic data provided by the ordering physician. Please notify the laboratory promptly if any data are incorrect. If you have questions concerning this report: For clinical consultation, call ; For technical questions, call ext [phone]; For recalculations, fax to . This test was developed and its performance characteristics have been determined by [facility]. Performance characteristics refer to the analytical performance of the test. 68 This patient's risk does not exceed the first trimester cut-off for Down syndrome or trisomy 18. The integrated screen calculation is awaiting the second trimester sample. NT WAS USED IN THE RISK CALCULATIONS. Thank you for submitting this patient's Part 1 specimen. These first trimester values will be incorporated with the second trimester values as part of the integrated testing process. Please submit the Part 2 specimen between 10/08/2013-12/02/2013 (15.0 and 22.9 weeks gestation) with 10/08/2013-10/21/2013 (15.0 - 16.9 weeks gestation) being optimal. When submitting Part 2, please include the following Specimen # from Part 1: [id number] 69 [place] rump length (CRL) was used to calculate gestational age. MARCIA, if provided, was not used for gestational age dating. 70 Interpretation reviewed by: Jacquelyn Gomez, Ph.D., [facility]. This is a screening test, not a diagnostic test. This risk assessment is based on demographic data provided by the ordering physician. Please notify the laboratory promptly if any data are incorrect. If you have questions concerning this report: For clinical consultation, call ; For technical questions, call ext [phone]; For recalculations, fax to . This test was developed and its performance characteristics have been determined by [facility]. Performance characteristics refer to the analytical performance of the test. 71 72 NEGATIVE; NONE OF THE MUTATIONS LISTED BELOW WERE DETECTED 73 This result does not rule out the presence of a mutation or a diagnosis of cystic fibrosis disease (CF).* The risk for mutations that cause CF other than the ones tested depends greatly on family history, clinical presentation, and ethnicity. Chance of Having a CF Mutation Ethnic Group Detection Before After Negative Rate Test Result Ashkenazi Cheondoism 94% 1 in 24 1 in 400 Non- 88% 1 in 25 1 in 208 -Cambodian 72% 1 in 46 1 in 164 -[place]ambodian 65% 1 in 65 1 in 186 -[place]ian 49% 1 in 94 1 in 184 Other insufficient data available For assistance with interpretation of these results, please contact your local [facility] genetic counselor or call [email or web address] ([phone]). 74 G85E (c.254 G>A) 3120+1 G>A(c.2988+1G>A) R334W (c.1000 C>T) 394delTT (c.262_263delTT) V520F (c.1558 G>T) 1717-1 G>A(c.1585-1 G>A) R553X (c.1657 C>T) 1898+1 G>A(c.1766+1 G>A) A5841H(c.3846 G>A) 3659delC (c.3437delC) R347H (c.1040 G>A) 621+1 G>T (c.489+1 G>T) R560T (c.1679 G>C) 3905insT (c.3773_3774insT) T5460B(c.3484 C>T) 2183AA>G (c.2051_2052delAAinsG) A4690I(c.3909 C>G) 711+1 G>T (c.579+1 G>T) R117H (c.350 G>A) C512msl (c.1519_1521delATC) R347P (c.1040 G>T) 2184delA (c.2052delA) G542X (c.1624 G>T) 3876delA (c.3744delA) A455E (c.1364 C>A) 1078delT (c.948delT) S549N (c.1647 G>A) Y100vkq (c.1521_1523delCTT) S549R (c.1646 A>C) 2789+5 G>A(c.2657+5 G>A) G551D (c.1652 G>A) 3849+10kb C>T (c.6159-5451 C>T) This assay detects thirty-two mutations, including the twenty-three core mutations recommended by the [place] [employer] (ACMG) and the [place] [employer] (ACOG) for population-based CF carrier screening. Testing for the intron 8 5T polymorphism is performed only when the R117H mutation is detected. Testing for the I506V and I507V polymorphisms is performed only when a homozygous Delta F508 or Delta I507 mutation is detected. In addition to the ACMG/ACOG panel, this assay detects nine additional mutations. While these mutations are rare in the [place] population, the scientific and medical literature indicates that these mutations are not benign polymorphisms. 75 The mutations listed above are detected by an oligonucleotide ligation assay (LIMA) after multiplex- polymerase chain reaction (PCR) amplification of specific CF gene regions. Fluorescent allele-specific reaction products are detected by capillary electrophoresis. Since genetic variation and other factors can affect the accuracy of direct mutation testing, the results of this testing should always be interpreted in light of clinical and familial data. 76 Danisha Montanez, Ph.D., [facility] Director, Molecular Genetics The performance characteristics of this assay have been determined by [facility] [place] [employer]. Performance characteristics refer to the analytical performance of the test. For more information on this test, go to http://education.App[employer]ize/faq/cfscreen 77 It is recognized that currently available assays for the detection of antibodies to HIV-1 and/or HIV-2 may not detect all infected individuals. HIV antibodies may be undetectable in some stages of the infection and in some clinical conditions. The performance of this assay has not been established for populations of infants or children. Assayed by Chemiluminescence Microparticle Immunoassay on the Siemens Advia Centaur CP. Values obtained with different methods or kits cannot be used interchangeably.The diagnostic specificity of the ADVIA Centaur 1/O/2 Enhanced assay in the low risk population was 99.90% (6052/6058) with a 95% confidence interval of 99.78 to 99.96%. 78 Therapeutic target for the treatment of diabetes Mellitus patients is <7% HBA1C, and in selective patients <6.0%.Please refer to [place] [employer] Association Diabetic care guidelines for further information. 79 YES 80 RUN DATE: 08/28/13 [facility] LAB LIVE PAGE 1 RUN TIME: [address] [place] [id number] Specimen Inquiry Name: BAKARI LU : [address]: Kimberly Cannon [facility] [place] Acct: [id number] Unit: [id number] AGE: 23 Location: [facility] Re08/26/13 SEX: F Status: REG REF SPEC: [id number] EMILY: 08/26/13-[address] [facility] [address]: Kimberly Cannon [facility] [place] REQ: [id number] RECD: 08/26/13-1601 STATUS: COMP _ SOURCE: URINE SPDESC: ORDERED: Urine Culture QUERIES: Medent Number [id number] Procedure Result Verified Site Urine Culture Final 08/28/13- 1028 ML Organism 1 NORMAL YENY [place] Count 10-25,000 (Moderate) CFU/ML END OF REPORT * ML=Testing performed at Main Lab DEPARTMENT OF PATHOLOGY, [address] [place] [address] Sukhdev Young M.D. Director [facility] Permit #[id number] Procedures Date Code Description Status 03/25/2018 80040 Echography Transvaginal Completed 03/29/2016 30834 Delivery Routine Completed 03/29/2016 67524 Ligation/Transection Fallopian Tubes During Surgery Completed 03/07/2016 97608 Echography Uterus Limited Completed 02/29/2016 61585 Biophysical Profile W/ NST Completed 12/13/2015 09387 Echography Uterus Follow-Up Or Repeat Completed 11/10/2015 88755 Echography Uterus Complete Completed 09/25/2015 70931 Nuchal Translucency Ultrasound /First Gestation Completed 08/25/2015 31883 OB Ultrasound First Trimester Completed 08/04/2015 37605 Echography Transvaginal Completed 03/24/2014 12974 Delivery Routine Completed 03/24/2014 20298 Delivery Only Completed 03/17/2014 97124 Echography Uterus Follow-Up Or Repeat Completed 03/04/2014 94655 Echography Uterus Limited Completed 02/09/2014 18523 Echography Uterus Limited Completed 01/28/2014 70886 Echography Uterus Follow-Up Or Repeat Completed 11/10/2013 46783 Echography Uterus Complete Completed 09/15/2013 00558 Nuchal Translucency Ultrasound /First Gestation Completed 08/26/2013 01598 OB Ultrasound First Trimester Completed 07/29/2013 92561 OB Ultrasound First Trimester Completed Encounters Type Date Location Provider Dx Diagnosis Office Visit 08/12/2018 [facility] Vonnie Lorenzana, R10.2 Pelvic and perineal 1:20p CNM pain N92.6 Irregular menstruation, unspecified Office Visit 04/14/2018 2:00p [facility] Arlene N92.6 Irregular MD Raul menstruation, unspecified Office Visit 11/18/2017 10:30a [facility] Office Arlene Z01.411 Encntr for digester hand exam MD Raul (general) (routine) w abnormal findings N92.6 Irregular menstruation, unspecified Office Visit 07/03/2017 11:00a [facility] Quin Wolfe N64.59 Other signs and M.D. symptoms in breast Office Visit 04/21/2017 3:40p [facility] Office Jasson A. B37.3 Candidiasis of vulva Magalis Mar and vagina Office Visit 11/13/2016 1:30p [facility] Office Arlene Z01.419 Encntr for digester hand exam MD Raul (general) (routine) w/o abn findings Office Visit 03/22/2016 2:30p [facility] Office Arlene Z01.818 Encounter for other MD Raul preprocedural examination O34.21 Maternal care for scar from previous delivery Office Visit 02/29/2016 2:06p Delivery Jasson Mar, O47.03 False labor before M.D. 37 completed weeks of gest, third tri Office Visit 10/31/2015 9:40a [facility] Office María Elena Miranda, R30.0 Dysuria ANP-C Office Visit 08/04/2015 3:00p [facility] Office Saumya Velasquez NP O26.91 related conditions, unspecified, first trimester Office Visit 09/21/2014 1:00p [facility] Office Janett Soni, V76.19 Screening Breast MD Exam Malignant Neoplasms Other V72.31 Routine Decorative Engraver Examination V76.2 Screening Malignant Neoplasm Cervix Office Visit 04/14/2014 11:20a [facility] María Elena Miranda, V45.89 Postsurgical Status ANP-C Other Office Visit 03/17/2014 9:00a [facility] Office Arlene V12.51 History Personal MD Raul Venous Thromb & Embolism V72.83 Examination Preoperative Other Spec Office Visit 07/29/2013 10:00a [facility] Chen Fontaine V72.42 MD Examination Or Test Positive Result V12.51 History Personal Venous Thromb & Embolism Office Visit 04/28/2013 8:00a [facility] Chen Fontaine MD V12.51 History Personal Venous Thromb & Embolism V26.9 Procreative Management Unspec Plan of Treatment No Information Available
[2018-08-31 16:14] VITALS: BP 118/74
--- NOTE | 2018-08-31 16:15 | UC ---
Hand/Wrist HPI - HPI Summary HPI Summary: 28 y/o female presents to the urgent care c/o left index finger pain and swelling s/p slipping her hand while getting up on a counter at home yesterday afternoon. Pt reports her index finger knuckle hurts and is unable to flex her finger. She has taken Advil PO and applied ice and pain has decrease. Pain now is 4/10. Pt had mild numbness yesterday which has resolved today. Pt denies SOB , chest pain,abdominal pain, N/V/D. - History Of Current Complaint Chief Complaint: UCUpperExtremity Stated Complaint: FINGER INJURY Time Seen by Provider: 08/31/18 16:13 Hx Obtained From: Patient Hx Last Menstrual Period: 08/25/2017 ?: No - Pt declines test Onset/Duration: Sudden Onset, Lasting Days - 1 day, Still Present Severity Initially: Moderate Severity Currently: Mild Pain Intensity: 4 Pain Scale Used: 0-10 Numeric Character Of Pain: Throbbing Aggravating Factor(s): Movement, Lifting, Flexion Alleviating Factor(s): Rest, Ice, OTC Meds - advil PO Associated Signs And Symptoms: Positive: Swelling, Numbness/Tingling - mild yesterday Related History: Dominant Hand Right - Allergies/Home Medications Allergies/Adverse Reactions: Allergies Allergy/AdvReac Type Severity Reaction Status Date / Time amoxicillin Allergy Anaphylatic Verified 01/12/18 20:57 Shock morphine Allergy GI Upset Verified 01/12/18 20:57 Sulfa (Sulfonamide Allergy Hives Verified 01/12/18 20:57 Antibiotics) IV dye Allergy Severe Hives Uncoded 01/12/18 20:57 Home Medications: Home Medications Ibuprofen 600 mg 08/31/18 [History] PMH/Surg Hx/FS Hx/Imm Hx Previously Healthy: Yes Cardiovascular History: Deep Vein Thrombosis Respiratory History: Asthma - Surgical History Surgical History: Yes Surgery Procedure, Year, and Place: wisdom teeth; x2. tubal ligation. right venous thromosis, brain 2008 - Family History Known Family History: Positive: Hypertension, Diabetes, Other - Bee allergy - father - Social History Occupation: Employed Full-time Lives: With Family Alcohol Use: Rare Substance Use Type: None Smoking Status (MU): Never Smoked Tobacco Have You Smoked in the Last Year: No - Immunization History Most Recent Influenza Vaccination: NOT YET 2017 Most Recent Tetanus Shot: 01/23/16 Most Recent Pneumonia Vaccination: never Vaccination Up to Date: Yes Review of Systems All Other Systems Reviewed And Are Negative: Yes Constitutional: Positive: Negative Skin: Positive: Other - left index swelling s/p injury Eyes: Positive: Negative ENT: Positive: Negative Respiratory: Positive: Negative Cardiovascular: Positive: Negative Gastrointestinal: Positive: Negative Genitourinary: Positive: Negative Motor: Positive: Negative Neurovascular: Positive: Negative Musculoskeletal: Positive: Decreased ROM - left index finger, Other: - left index pain s/p injury on a counter yesterday Neurological: Positive: Negative Psychological: Positive: Negative Is Patient Immunocompromised?: No Physical Exam - Summary Physical Exam Summary: Vital Signs Reviewed: Yes General: Well developed well nourished female sitting in the examining table w/ o any apparent distress Eyes: Positive: Conjunctiva Clear - PERRLA, EOMI ENT: Positive: Normal ENT inspection, Hearing grossly normal, Pharynx normal, TMs normal Neck: Positive: Supple, Nontender, No Lymphadenopathy Respiratory: Positive: Chest non-tender, Lungs clear, Normal breath sounds, No respiratory distress Cardiovascular: Positive: RRR, No Murmur, Pulses Normal, Brisk Capillary Refill Abdomen Description: Positive: Nontender, No Organomegaly, Soft. Negative: CVA Tenderness (R), CVA Tenderness (L) Bowel Sounds: Positive: Present Musculoskeletal: Positive: Strength Intact, No Edema,Left Hand/Fingers: the L hand is without obvious asymmetry or deformity when compared to the R hand. mild swelling around dorsal side of #2 phalanx, but can't adduct phalanx due to pain, no erythema, atrophy, or obvious deformity. No surface trauma, open wounds ,bony deformity. Normal cascade of fingers. Normal flexion and extension of fingers, except for left #2 phalanx due to pain. FDS and FDP intact against resistance. No focal fullness, throbbing pain, swelling of finger tip. Pulses and capillary refill WNL, positive reflexes and sensation intact Neurological Exam: Normal Psychological Exam: Normal Skin Exam: Normal Triage Information Reviewed: Yes Vital Signs: Initial Vital Signs Temp 98.3 F 08/31/18 16:06 Pulse 65 08/31/18 16:06 Resp 16 08/31/18 16:06 BP 118/74 08/31/18 16:06 Pulse Ox 100 08/31/18 16:06 Hand/Wrist Course/Dx - Course Course Of Treatment: 28 y/o female presents to the urgent care c/o left index finger pain and swelling s/p slipping her hand while getting up on a counter at home yesterday afternoon. Pt reports her index finger knuckle hurts and is unable to flex her finger. She has taken Advil PO and applied ice and pain has decrease. Pain now is 4/10. Pt had mild numbness yesterday which has resolved today. Pt denies SOB, chest pain,abdominal pain, N/V/D. Hx obtained. Pt w/ Positive mild swelling around dorsal side of left #2 PIPJ, and point tenderness on palpation on examination w/ decrease ROM. LF #2 phalanx X-ray ordered: impression: Mild fusiform soft tissue swelling. Negative for fracture or malalignment. Preserved joint spaces. Probably a finger sprain. Pt's LF finger immobilized with a finger splint and body tape with #3rd digit by me. Pt is neurovascular intact after splint placement. Pt advised to continue taking Advil PO to alelviate pain.Pt advised RICE. F/u with Orthopedic Dr King pr Physical therapy in 1 week for further evaluation and treatment if not improvment of symptoms. D/C instructions explained. Pt understood and agreed with plan of care - Differential Dx/Diagnosis Differential Diagnosis/HQI/PQRI: Bursitis, Contusion, Fracture, Sprain, Strain, Tendonitis Provider Diagnosis: Sprain of left index finger Discharge - Sign-Out/Discharge Documenting (check all that apply): Patient Departure - D/C home All imaging exams completed and their final reports reviewed: Yes - Discharge Plan Condition: Stable Disposition: HOME Patient Education Materials: Finger Sprain (ED) Referrals: Po Law MD [Medical Doctor] - 1 Week Lesa Rodriguez MD [Primary Care Provider] - 1 Week Additional Instructions: 1-Please contineu taking Advil PO q6-8hrs after meals as directed to alleviate pain and swelling. 2-Please apply ice, keep your finger immobilized with the splint. elevate your hand at times 3- Please f/u with Orthopedic or your PCP in 1 week is not improvement of symptoms for further evaluation and treatment. 4- F/U physical therapy referral for further management - Billing Disposition and Condition Condition: STABLE Disposition: Home
== END 2018-08-31 17:00 | disposition home or self-care (01) ==
LOC: UCEAST 15:51
DX: S63.611A Unspecified sprain of left index finger, initial encounter (principal); J45.909 Unspecified asthma, uncomplicated; Z86.718 Personal history of other venous thrombosis and embolism; Z88.2 Allergy status to sulfonamides; Z91.041 Radiographic dye allergy status; Z88.0 Allergy status to penicillin; Z88.5 Allergy status to narcotic agent
CPT/HCPCS: 73140; 99212; G0463

== ENCOUNTER 2019-01-19 14:22 | Emergency (ER) | payer BC ==
--- NOTE | 2019-01-19 18:08 | ED ---
Headache - HPI Summary HPI Summary: Pt is a 28 y/o F presenting to the ED with a chief complaint of a headache initially onset 1 month ago that has worsened in the last week. She called her neurologist who recommended coming here for an MRI. She reports intermittent nausea and dizziness. Hx cerebral thrombosis. - History Of Current Complaint Chief Complaint: EDHeadache Stated Complaint: NEEDS SCAN DONE PER PT Time Seen by Provider: 01/19/19 14:35 Hx Obtained From: Patient Hx Last Menstrual Period: 08/25/2017 Onset/Duration: Gradual Onset, Started weeks ago, Still Present, Worse Since - this past week Initially Headache Was: Moderate Currently Pain Is: Moderate Timing: Constant, Weeks Character: Typical Headache Location of Headache: Diffuse Aggravating Factor: Nothing Allevating Factors: Nothing Associated Signs And Symptoms: Dizziness, Nausea - Allergies/Home Medications Allergies/Adverse Reactions: Allergies Allergy/AdvReac Type Severity Reaction Status Date / Time amoxicillin Allergy Anaphylatic Verified 01/19/19 14:30 Shock Iodinated Contrast- Oral and Allergy Hives Verified 01/19/19 14:30 IV Dye morphine Allergy GI Upset Verified 01/19/19 14:30 Sulfa (Sulfonamide Allergy Hives Verified 01/19/19 14:30 Antibiotics) PMH/Surg Hx/FS Hx/Imm Hx Previously Healthy: Yes Endocrine/Hematology History: Denies: Hx Diabetes Cardiovascular History: Reports: Other Cardiovascular Problems/Disorders - Venous sinus thrombosis Denies: Hx Hypertension, Hx Pacemaker/ICD Respiratory History: Reports: Hx Asthma History: Denies: Hx Renal Disease Sensory History: Denies: Hx Hearing Aid Neurological History: Reports: Other Neuro Impairments/Disorders - venous sinus thrombosis Psychiatric History: Reports: Hx Anxiety Denies: Hx Panic Disorder - Surgical History Surgery Procedure, Year, and Place: wisdom teeth; x2. tubal ligation - Immunization History Date of Tetanus Vaccine: Unk Date of Influenza Vaccine: Declines Infectious Disease History: No Infectious Disease History: Denies: History Other Infectious Disease, Traveled Outside the [place] in Last 30 Days - Family History Known Family History: Positive: Hypertension, Diabetes, Other - Bee allergy - father - Social History Alcohol Use: Rare Hx Substance Use: No Substance Use Type: Reports: None Hx Tobacco Use: No Smoking Status (MU): Never Smoked Tobacco Have You Smoked in the Last Year: No Review of Systems Positive: Nausea Neurological: Other - dizziness Positive: Headache All Other Systems Reviewed And Are Negative: Yes Physical Exam - Summary Physical Exam Summary: Constitutional: Well-developed, Well-nourished, Alert. (-) Distressed Skin: Warm, Dry HENT: Normocephalic; Atraumatic Eyes: Conjunctiva normal Neck: Musculoskeletal ROM normal neck. (-) JVD, (-) Stridor, (-) Tracheal deviation Cardio: Rhythm regular, rate normal, Heart sounds normal; Intact distal pulses; The pedal pulses are 2+ and symmetric. Radial pulses are 2+ and symmetric. (-) Murmur Pulmonary/Chest wall: Effort normal. (-) Respiratory distress, (-) Wheezes, (-) Rales Abd: Soft, (-) tenderness, (-) Distension, (-) Guarding, (-) Rebound Musculoskeletal: (-) Edema Lymph: (-) Cervical adenopathy Neuro: Alert, Oriented x3 Psych: Mood and affect Normal Triage Information Reviewed: Yes Vital Signs On Initial Exam: Initial Vitals Temp Pulse Resp BP Pulse Ox 99.4 F 68 16 141/96 98 01/19/19 14:27 01/19/19 14:27 01/19/19 14:27 01/19/19 14:27 01/19/19 14:27 Vital Signs Reviewed: Yes Diagnostics - Vital Signs Vital Signs Temp Pulse Resp BP Pulse Ox 01/19/19 16:44 99.1 F 59 16 150/98 99 01/19/19 14:27 99.4 F 68 16 141/96 98 - Laboratory Lab Statement: Any lab studies that have been ordered have been reviewed, and results considered in the medical decision making process. - Radiology Brain MRI Radiology Interpretation Completed By: Radiologist Summary of Radiographic Findings: Brain MRI shows normal brain. ED physician has reviewed this report. Head MRI Radiology Interpretation Completed By: Radiologist Summary of Radiographic Findings: Head MRI shows no findings to suggest acute venous sinus thrombosis. ED physician has reviewed this report. - CT Brain CT CT Interpretation Completed By: Radiologist Summary of CT Findings: Brain CT shows no acute intracranial abnormality. ED physician has reviewed this report. Headache Course/Dx - Course Course Of Treatment: Pt is a 28 y/o F presenting to the ED with a chief complaint of a headache initially onset 1 month ago that has worsened in the last week. She called her neurologist who recommended coming here for an MRI. She reports intermittent nausea and dizziness. Hx cerebral thrombosis. Pt's physical exam is nml. Brain CT shows no acute intracranial abnormality. Head MRI shows no findings to suggest acute venous sinus thrombosis. Brain MRI shows normal brain. She will be d/c'ed with a dx of migraine headaches and instructions to follow up with her PCP. She is stable and agreeable with this plan. - Diagnoses Provider Diagnoses: Migraine headache Discharge - Sign-Out/Discharge Documenting (check all that apply): Patient Departure Patient Received Moderate/Deep Sedation with Procedure: No - Discharge Plan Condition: Stable Disposition: HOME Patient Education Materials: Migraine Headache (ED) Print Language: ARGENTINE Referrals: Lesa Rodriguez MD [Primary Care Provider] - Additional Instructions: Follow-up with your neurologist as scheduled. - Billing Disposition and Condition Condition: STABLE Disposition: Home - Attestation Statements Document Initiated by Fadi: Yes Documenting Scribe: Vero Cutler Provider For Whom Fadi is Documenting (Include Credential): Nelida Prieto MD. Scribe Attestation: Vero Nance, solangeed for Nelida Aguilera MD. on 01/19/19 at 1847. Scribe Documentation Reviewed: Yes Provider Attestation: The documentation as recorded by the scribeVero accurately reflects the service I personally performed and the decisions made by , Nelida Aguilera MD. Status of Scribe Document: Viewed
[2019-01-19] MEDS ORDERED: Acetaminophen TAB* 325 MG PO ONE (18:25)
[2019-01-19] MEDS ORDERED: Ibuprofen TAB* 800 MG PO ONE (18:25)
[2019-01-19 18:26] VITALS: BP 149/64
== END 2019-01-19 18:35 | disposition home or self-care (01) ==
LOC: ED 14:22
DX: G43.909 Migraine, unspecified, not intractable, without status migrainosus (principal); R11.0 Nausea; R42 Dizziness and giddiness; Z86.718 Personal history of other venous thrombosis and embolism; Z88.5 Allergy status to narcotic agent; Z88.0 Allergy status to penicillin; Z88.2 Allergy status to sulfonamides; Z91.041 Radiographic dye allergy status
CPT/HCPCS: 70450; 70544; 70551; 99282; A9270-GY